=== PATIENT | female | born 1985 ===

== ENCOUNTER 2020-12-22 | Outpatient (REF) | payer BC, SELFPAY | END 2020-12-22 00:01 | disposition home or self-care (01) | LOC: HO.LNP | PROVIDERS: Visit Provider Nurse Practitioner Family | DX: J02.9 Acute pharyngitis, unspecified (principal); Z20.822 Contact with and (suspected) exposure to COVID-19 | CPT/HCPCS: U0003; U0005 ==

== ENCOUNTER 2021-05-07 10:15 | Outpatient (REF) | payer BC, SELFPAY ==
[2021-05-07 11:26] LABS: MANUAL DIFF FLAG NO
[2021-05-07 11:34] LABS: Basophils Absolute Auto 0.1 X10*3/uL (0.0-0.2); Basophils Percent Auto 0.7 % (0-2); Eosinophils Absolute Auto 0.1 X10*3/uL (0.0-0.4); Eosinophils Percent Auto 1.9 % (0-4); Hematocrit 39.6 % (37.0-47.0); Hemoglobin 12.9 g/dl (12.0-16.0); Imm Gran Abs Auto 0.02 X10*3/uL (0.00-0.03); Imm Gran Pct Auto 0.3 % (0.0-0.4); Lymphocytes Absolute Auto 2.2 X10*3/uL (1.2-4.9); Lymphocytes Percent Auto 32.5 % (20-40); Mean Corpuscular HGB Conc 32.6 g/dl (31.0-35.0); Mean Corpuscular Hemoglobin 29.9 pg (27.0-33.0); Mean Corpuscular Volume 91.7 fL (80.0-98.0); Mean Platelet Volume 10.5 fL (9.4-12.3); Monocytes Absolute Auto 0.5 X10*3/uL (0.1-1.2); Monocytes Percent Auto 7.4 % (2-11); Neutrophils Absolute Auto 3.9 x10*3/uL (2.0-8.3); Neutrophils Percent Auto 57.2 % (45-73); Platelet Count 290 X10*3/uL (160-400); Red Blood Count 4.32 X10*6/uL (4.20-5.50); White Blood Count 6.8 X10*3/uL (4.8-10.8)
[2021-05-07 12:07] LABS: Vitamin D 25-OH Total 25.1 ng/mL (>30)
[2021-05-07 12:39] LABS: Alanine Aminotransferase 15 U/L (0-31); Anion Gap 11 (12-20); Aspartate Amino Transferase 14 U/L (5-31); Blood Urea Nitrogen 10 mg/dL (9-16); Calcium 9.4 mg/dL (8.4-10.2); Carbon Dioxide 25 mmol/L (22-29); Chloride 109 mmol/L (96-108); Cholesterol 185 mg/dL; Estimated Glomerular Filt Rate > 60; Glucose Fasting 101 mg/dL (60-99); HDL Cholesterol 47 mg/dL; LDL Cholesterol Calculated 116 mg/dl; Potassium 4.1 mmol/L (3.3-5.1); Sodium 141 mmol/L (135-145); Triglycerides 111 mg/dL
== END 2021-05-07 10:16 | disposition home or self-care (01) ==
LOC: HO.HMGCLDS 10:15
PROVIDERS: PCP Internal Medicine; Visit Provider Internal Medicine
DX: Z00.01 Encounter for general adult medical examination with abnormal findings (principal); I10 Essential (primary) hypertension
CPT/HCPCS: 36415; 80048; 80061; 82306; 84450; 84460; 85025

== ENCOUNTER → 2021-09-30 13:34 | Outpatient (RCR) | payer BC, SELFPAY ==
--- NOTE | 2020-03-20 19:14 | MHC.PT.EP ---
[facility] [place] Office [place] Office [place] Office [address] Pedro Martinez [address] [phone] F: [phone] F: [phone] F: [phone] F: [phone] Physical Therapy Plan of Care Date of Evaluation: 03/20/20 Date of Surgery: Diagnosis: Hip pain. 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 Pt is deemed an appropriate candidate to receive skilled PT services to address her physical impairments in order to improve her functional ability. Frequency and Duration: The patient will be seen 2 x / wk 5 wks. Short Term Goals: In 2 weeks: initiate HEP with evidence of compliance. By 1 week: PT will have communicated with MD office re. diagnostic imaging to rule out FALGUNI or acetabular / femur head anomaly. Retirement Goals: In 5 weeks: I with HEP. In 5 weeks: improve R hip abd MMT to 5/5. In 5 weeks: Pt will be able to walk as long as she'd like with managed Sx. initial: quite a bit of difficulty x 2 blocks to 1 mile. Treatment Plan: Modalities to reduce pain, spasms and effusion. Manual therapy to restore motion and function. Therapeutic exercise to improve strength and flexibility. Neuromuscular re-education for posture and balance. Therapeutic activities to return to functional activities of daily living. Please sign and return to therapist. Thank you for your referral.
--- NOTE | 2020-04-28 11:18 | MHC.PT.DC ---
[facility] [place] Office [place] Office [place] Office [address] Pedro Martinez [address] [phone] F: [phone] F: [phone] F: [phone] F: [phone] Physical Therapy Discharge Report Diagnosis: Hip pain. Date of Surgery: Date of Evaluation: 03/20/20 Date of Discharge: Treatments to Date: 1 Cancellations to Date: 0 No Shows to Date: 0 Discharge Status: Patient Elected to Stop Visit Non-compliance Discharge Summary: Pt attended her initial evaluation and did not f/u with therapy despite reminder calls. Electronically signed by: Prince Luciano PT. Please sign and return to therapist. Thank you for your referral.
== END | disposition home or self-care (01) ==
LOC: HO.PTCHIC 03-20 16:53
PROVIDERS: PCP Internal Medicine; Visit Provider Nurse Practitioner Family
DX: M25.559 Pain in unspecified hip (principal)
CPT/HCPCS: 97110; 97140; 97161

== ENCOUNTER 2021-11-10 18:12 | Emergency (ER) | payer OTHER, SELFPAY ==
--- NOTE | ~2021-11-10 | XR_ITS ---
EXAMINATION: XR SHOULDER, LEFT CLINICAL INFORMATION: Pain COMPARISON: None TECHNIQUE: AP external rotation, Grashey, scapular Y, and axillary views of the left shoulder. FINDINGS: The bones and soft tissues are normal. No fracture. Glenohumeral and acromioclavicular alignment is anatomic with normal joint space. No abnormal soft tissue calcifications. XR/XR shoulder LT min 2V IMPRESSION: Normal left shoulder.
[2021-11-10 19:44] VITALS: BP 148/99; PULSE 98; RESP 17; TEMP 36.1; O2SAT 99; BMI 37.0
[2021-11-10 21:22] VITALS: BP 135/73; PULSE 80; RESP 16; O2SAT 98
--- NOTE | 2021-11-10 22:51 | ED.EXTPRO ---
HPI - Extremity Problem General Chief complaint: Extremity Injury, Upper Stated complaint: shoulder pain Time Seen by Provider: 11/10/21 20:56 Source: patient Mode of arrival: ambulatory History of Present Illness HPI Narrative: 35-year-old female with a past medical history of anxiety, depression, alcoholism in remission, presenting to the ED complaining of left shoulder/upper back pain since Tuesday. Reports slept on couch one night over weekend, otherwise denies any trauma/fall, heavy lifting for injury. Denies numbness, tingling, weakness, headache, neck pain Onset (ago): day(s) Pain Consistency: constant Related Data Previous Rx's Medication Instructions Recorded azithromycin 250 mg tablet See Rx Instructions PO .COMPLEX #6 09/15/21 tabs cimetidine 400 mg tablet 400 mg PO BEDTIME #5 tabs 09/15/21 diphenhydramine HCl 25 mg capsule 25 mg PO BID PRN sleep #14 caps 09/15/21 (Benadryl) prednisone 20 mg tablet 20 mg PO BID #9 tabs 09/15/21 acetaminophen 500 mg tablet 500 mg PO Q6H PRN fever or pain 11/10/21 (Tylenol Extra Strength) #14 tabs cyclobenzaprine 5 mg tablet 5 mg PO Q8H PRN pain (scale score 11/10/21 7-10) 5 days #14 tabs lidocaine 5 % topical patch 1 patch topical DAILY PRN pain #30 11/10/21 (Lidoderm) ea naproxen 500 mg tablet 500 mg PO BID PRN pain 10 days #20 11/10/21 tabs Allergies Allergy/AdvReac Type Severity Reaction Status Date / Time No Known Allergies Allergy Verified 09/15/21 16:41 Review of Systems Review of Systems: Constitutional: No Fever, No Chills ENT/Mouth: No Ear Pain, No Nasal Congestion, No Sinus Pain, No Hoarseness, No sore throat, No Rhinorrhea, No Swallowing Difficulty Cardiovascular: No Chest Pain, No SOB Respiratory: No Cough, No Sputum Gastrointestinal: No Nausea, No Vomiting, No Diarrhea, No Constipation, No Abdominal pain Genitourinary: No Dysuria, No Urinary Frequency, No Hematuria, No Urinary Incontinence/retention, No Urgency, No Flank Pain Musculoskeletal: + joint pain, No Myalgias, No Joint Swelling Skin: No Skin Lesions, No rash Neuro: No Weakness, No Numbness, No Paresthesias Yes all other systems are reviewed and are negative Neurologic: Denies Sensory deficit (Neuro) [facility] Past Medical History Attestation statement: The following information was validated with the patient. Medical History Chronic alcoholism in remission Obstruction of fallopian tube Surgical History H/O unilateral salpingectomy History of surgery Family History Family History Father Medical history non-contributory Mother Medical history non-contributory Maternal Uncle OCD (obsessive compulsive disorder) Mental health disorder Brother Medical history non-contributory Maternal Grandfather Substance use disorder Paternal Grandfather Substance use disorder Social History Social History Housing: House Patient Tobacco Use Status: Never used Tobacco e-Cigarette/Vaping Use: Never Used Advance Directives: No Advance Directives Information Provided: No service: No Current occupational status: employed Physical Exam Vital Signs: Vital Signs: Last Vital Signs Temp 96.9 F 11/10/21 19:44 Pulse 80 11/10/21 21:22 Resp 16 11/10/21 21:22 BP 135/73 11/10/21 21:22 Pulse Ox 98 11/10/21 21:22 O2 Del Method 11/10/21 19:44 BMI result Body Mass Index 37.0 Const: General: cooperative, healthy appearing and no acute distress Orientation/consciousness: patient oriented x3 Limitations: no limitations HEENT: Head: Yes normal to inspection and Yes atraumatic Ears: hearing grossly normal bilaterally General nose exam: Normal external nose present Face and sinus: Yes normal facial exam Eyes: General: appearance normal, both eyes and all related structures EOM: EOMs intact bilaterally Neck: Other: No midline cervical spinous tenderness/step-off or deformity. Left-sided trapezius muscle/upper back spasming and tenderness to palpation. No erythema/crepitus or ecchymosis Neck: Yes normal visual inspection, Yes full ROM, Yes no lymphadenopathy, Yes no meningeal signs and No anterior neck swelling Resp: Effort & Inspection: normal respiratory effort and no respiratory distress Cardio: Rate: regular rate Heart sounds: S1 normal heart sound present and S2 normal heart sound present Peripheral pulses: radial pulses present : General: Yes no CVA tenderness Back/Spine/Pelvis: Other: No midline thoracic/lumbar spinous tenderness/step-off or deformity Back: no CVA tenderness Skin: Rashes: no rashes Wounds: no wounds Neuro: General: patient oriented x3, gait normal, tone normal, moves all extremities, no meningeal signs, no focal motor deficits and CN's II-XI intact bilaterally Gait exam (Neuro): Normal gait present Motor exam (neuro): 5/5 motor strength present throughout Sensory Exam: No Sensory deficit (Neuro) Extrem: Other: Left shoulder nontender. Mild limited ROM secondary to pain. Neurovascular intact distally. General: Yes normal to inspection Course Course Course Narrative: XR shoulder LT min 2V IMPRESSION: Normal left shoulder. > results discussed with patient MDM - Extremity (Nontraumatic) MDM Narrative Medical decision making narrative: 35-year-old female with a past medical history of anxiety, depression, alcoholism in remission, presenting to the ED complaining of left shoulder/upper back pain since Tuesday. On exam vital signs stable, NAD/nontoxic-appearing, concern for MSK pain/spasming vs strain. Low concern for fracture/dislocation or septic joint Pain: X-rays, pain control Medical Records Attestation: I reviewed the patient's medical records. Lab Data Attestation: I reviewed the patient's lab results. Discharge Plan Discharge Clinical Impression: Strain of left trapezius muscle Patient Disposition: Home, Self-Care Instructions: Muscle Strain (ED) Additional Instructions: Your x-ray was unremarkable Your pain is likely musculoskeletal Flexeril is a muscle relaxer, take at night as it makes you drowsy, do not drive, drink alcohol, or operate machinery while taking it Naproxen as an anti-inflammatory / pain medication, take with food Lidoderm patches are numbing patches, apply to painful area In addition take Tylenol at home If symptoms persist or worsen, pain becomes unbearable, you developed urinary retention or incontinence, or weakness return to the ED Prescriptions: New acetaminophen [Tylenol Extra Strength] 500 mg tablet 500 mg PO Q6H PRN (Reason: fever or pain) Qty: 14 0RF lidocaine [Lidoderm] 5 % adhesive patch,medicated 1 patch topical DAILY MDD remove after 12 hours PRN (Reason: pain) Qty: 30 0RF Rx Instructions: leave on most painful area for up to 12 hrs naproxen 500 mg tablet 500 mg PO BID PRN (Reason: pain) 10 Days Qty: 20 0RF cyclobenzaprine 5 mg tablet 5 mg PO Q8H PRN (Reason: pain (scale score 7-10)) 5 Days Qty: 14 0RF No Action diphenhydramine HCl [Benadryl] 25 mg capsule 25 mg PO BID PRN (Reason: sleep) Qty: 14 0RF prednisone 20 mg tablet 20 mg PO BID Qty: 9 0RF Rx Instructions: tapered dose, take 1 tablet by mouth twice a day x 3 days, followed by 1 tablet once a day x 3 days, then discontinue cimetidine 400 mg tablet 400 mg PO BEDTIME Qty: 5 0RF azithromycin 250 mg tablet See Rx Instructions PO .COMPLEX Qty: 6 0RF Rx Instructions: For 250 mg dose pack: take 500 mg today (day 1), then 250 mg for 4 days (days 2-5) PO Referrals: Duong Barragan PA-C [Physician Irradiated Fuel Handler] - 1 week Physician,Unknown J [Primary Care Provider] - 5 days
[2021-11-10] MEDS: Ketorolac Tromethamine 30 MG/ML VIAL IM (22:59)
[2021-11-10] MEDS: Lidocaine 4 % Patch ADH..PATCH 1 PATCH TRANSDERMA (23:01)
== END 2021-11-10 23:09 | disposition home or self-care (01) ==
PROVIDERS: Emergency Provider Internal Medicine
DX: S46.912A Strain of unspecified muscle, fascia and tendon at shoulder and upper arm level, left arm, initial encounter (principal); X58.XXXA Exposure to other specified factors, initial encounter; Y93.9 Activity, unspecified; Y92.9 Unspecified place or not applicable; Y99.9 Unspecified external cause status; Z79.899 Other long term (current) drug therapy
CPT/HCPCS: 73030; 96372; 99284; J1885

== ENCOUNTER 2023-02-01 15:35 | Outpatient (AMB) | payer OTHER, SELFPAY ==
--- NOTE | 2023-02-01 16:09 | MHC.OFFWIV ---
Intake Vital Signs 02/01/23 16:14 Height 5 ft 4 in Weight 227 lb BMI 39.0 BP 112/80 Blood Pressure Location Rt brachial Position Sitting Pulse 86 Pulse Source Pulse Oximeter Pulse Oximetry (%) 98 Oxygen Delivery Method Room Air Intake Visit Reasons: EP, cough, UTI? ([phone]) Intake Note: Patient here for possible UTI which started today she states she has some burning when urinating. She also would like to talk about a cough that has been present for about 1 week, she mentioned she wakes up congested and has a hard time at night with coughing. Patient Tobacco Use Status: Never used Tobacco Allergies No Known Allergies Allergy (Verified 02/01/23 16:48) Medication List - Last Reconciled 02/01/23 by Viral Cameron MD acyclovir 400 mg (10 mL) PO .five times daily 5 days benzonatate 100 mg PO TID ondansetron 4 mg PO Q8H sulfamethoxazole-trimethoprim 800-160 mg (Bactrim DS) 1 tab PO BID 7 days Do you need a note to return to daycare/school/sports/work: No HPI EP, cough, UTI? ([phone]) HPI Details 37-year-old female presents to the office for a sick visit. She has 2 complaints. Reports symptoms of increased frequency of urination, burning on urination and discomfort in the suprapubic area. Symptoms started in the past few days. No fevers or chills. No nausea or vomiting. Reporting symptoms of sinus congestion, sore throat and difficulty swallowing. No recent travel. Patient reports symptoms of malaise and fatigue. [facility] Medical History Chronic alcoholism in remission Obstruction of fallopian tube Surgical History H/O unilateral salpingectomy History of surgery Family History Father Medical history non-contributory Mother Medical history non-contributory Maternal Uncle OCD (obsessive compulsive disorder) Mental health disorder Brother Medical history non-contributory Maternal Grandfather Substance use disorder Paternal Grandfather Substance use disorder Social History (Reviewed 11/10/21 @ 23:02 by RHIANNA Landa Housing: House Patient Tobacco Use Status: Never used Tobacco e-Cigarette/Vaping Use: Never Used service: No Current occupational status: employed Physical Exam Vital Signs: Last Vital Signs Pulse 86 02/01/23 16:14 BP 112/80 02/01/23 16:14 Pulse Ox 98 02/01/23 16:14 Oxygen Delivery Method Room Air 02/01/23 16:14 BMI result Body Mass Index 39.0 Const General: cooperative and healthy appearing Nutritional Appearance: well nourished Orientation/consciousness: patient oriented x3 Limitations: no limitations HEENT Head: Yes normal to inspection Eyes General: appearance normal, both eyes and all related structures Neck Neck: Yes normal visual inspection Chest Chest palpation & inspection: normal palpation of entire chest wall Resp Effort & Inspection: normal respiratory effort General: Yes bladder normal to inspection and Yes no CVA tenderness Back/Spine/Pelvis Back: no CVA tenderness Neuro General: patient oriented x3 Results AMB Urinalysis, Automated UA Leukoctes 15 Drew/uL Last Edit by Altaf Eubanks CCM on 02/01/23 16:27 UA Nitrite Negative Last Edit by Altaf Eubanks [facility] on 02/01/23 16:27 UA Urobilinogen 0.2 mg/dL Last Edit by Altaf Eubanks CCM on 02/01/23 16:27 UA Protein 0 mg/dL Last Edit by Altaf Eubanks [facility] on 02/01/23 16:27 UA pH 6.0 Last Edit by Altaf Eubanks [facility] on 02/01/23 16:27 UA Blood 0 Dallin/uL Last Edit by Altaf Eubanks [facility] on 02/01/23 16:27 UA Specific Holly 1.030 Last Edit by Altaf Eubanks CCM on 02/01/23 16:27 UA Ketone Negative Last Edit by Altaf Eubanks CCM on 02/01/23 16:27 UA Bilirubin 0 mg/dL Last Edit by Altaf Eubanks CCM on 02/01/23 16:27 UA Glucose 0 mg/dL Last Edit by Altaf Eubanks [facility] on 02/01/23 16:27 Results Reviewed Results Reviewed: Laboratory Last Values Urine pH (Auto) 6.0 02/01/23 16:25 Specific Holly (Auto) 1.030 02/01/23 16:25 Urine Protein (Auto) 0 mg/dL 02/01/23 16:25 Glucose (UA)(Auto) 0 mg/dL 02/01/23 16:25 Urine Ketones (Auto) Negative 02/01/23 16:25 Urine Blood (Auto) 0 Dallin/uL 02/01/23 16:25 Urine Nitrite (Auto) Negative 02/01/23 16:25 Urine Bilirubin (Auto) 0 mg/dL 02/01/23 16:25 Urine Urobilinogen (Auto) 0.2 mg/dL 02/01/23 16:25 Leukocyte Esterase (Auto) 15 Drew/uL 02/01/23 16:25 Assessment & Plan Assessment & Plan (1) Upper respiratory tract infection: Code(s): J06.9 - Acute upper respiratory infection, unspecified Qualifiers: URI type: unspecified viral URI Qualified Code(s): J06.9 - Acute upper respiratory infection, unspecified Plan: Antibiotics ordered. Increase fluid intake. Tylenol for aches and pains. If symptoms worsen, follow-up here for a recheck. (2) Urinary tract infection: Code(s): N39.0 - Urinary tract infection, site not specified Qualifiers: Urinary tract infection type: acute cystitis Hematuria presence: without hematuria Qualified Code(s): N30.00 - Acute cystitis without hematuria Plan: Take antibiotics and Pyridium as directed. Increase fluid intake. If symptoms of burning persist, new onset of fever or lower back pain, to follow-up at the clinic. Orders: Orders AMB Urinalysis Automated Today Z13.9 - Encounter for screening, unspecified Medications: New sulfamethoxazole-trimethoprim 800-160 mg (Bactrim DS) 1 tab PO BID 7 days 14 tabs 0RF benzonatate 100 mg PO TID 30 caps 0RF ondansetron 4 mg PO Q8H 30 tabs 0RF Coding Level of Care Code Est Pt Level 4 (69194) Diagnoses Viral upper respiratory tract infection J06.9 URI type: unspecified viral URI Acute cystitis without hematuria N30.00 Urinary tract infection type: acute cystitis Hematuria presence: without hematuria
[2023-02-01 16:14] VITALS: BP 112/80; PULSE 86; O2SAT 98; BMI 39.0
== END 2023-02-01 16:47 | disposition home or self-care (01) ==
PROVIDERS: PCP Internal Medicine; Visit Provider Internal Medicine
DX: J06.9 Acute upper respiratory infection, unspecified (principal); N30.00 Acute cystitis without hematuria
CPT/HCPCS: 81003; 99214

== ENCOUNTER 2023-06-02 14:43 | Outpatient (AMB) | payer OTHER, SELFPAY ==
[2023-06-02 14:54] VITALS: BP 118/86; PULSE 82; O2SAT 99; BMI 39.5
--- NOTE | 2023-06-02 14:54 | A.OFFPC_ITS ---
Vital Signs 06/02/23 14:54 Height 5 ft 4 in Weight 230 lb 2 oz BMI 39.5 BP 118/86 Blood Pressure Location Rt brachial Position Sitting Pulse 82 Pulse Source Pulse Oximeter Pulse Oximetry (%) 99 Oxygen Delivery Method Room Air Intake Visit Reasons: Leg and toe pain Intake Note: Pt is here right leg pain and left toe pain pt says the pain in her leg started over 10 years ago pt says the left big toe is painful but says she is unsure of injury Allergies No Known Allergies Allergy (Verified 06/06/23 12:28) Medication List - Last Reconciled 06/06/23 by Najma Nash MD acyclovir 400 mg (10 mL) PO .five times daily 5 days doxycycline hyclate 100 mg PO Q12H 10 days ondansetron 4 mg PO Q8H Tobacco use date assessed: 06/02/23 Dental Screening Dental Screen Date: 06/02/23 Did you have a dental visit in the last 12 months?: Yes Did you have a dental problem in the last 6 months where you did not have access to dental care?: No Was dental information given to patient?: Patient has dentist HPI Leg and toe pain HPI Details 37-year-old lady here today complaining right hip pain, worse with ambulation and going up and down stairs. This has been an ongoing issue, no history of any injury or any strenuous exertion. Patient states that pain initially comes and goes, but has been more steady the last several weeks. Has tried [id number] NSAIDs which have affords only temporary relief. She has also been having pain and swelling around her left great toe, present now for the last several days. [facility] Medical History (Updated 06/02/23 @ 15:17 by Najma Nash MD) Chronic right hip pain Obesity (BMI 30-39.9) Anxiety and depression Chronic alcoholism in remission Obstruction of fallopian tube Surgical History H/O unilateral salpingectomy History of surgery Family History Father Medical history non-contributory Mother Medical history non-contributory Maternal Uncle OCD (obsessive compulsive disorder) Mental health disorder Brother Medical history non-contributory Maternal Grandfather Substance use disorder Paternal Grandfather Substance use disorder Social History Housing: House Patient Tobacco Use Status: Never used Tobacco e-Cigarette/Vaping Use: Never Used service: No Current occupational status: employed Cognitive needs: No Hearing needs: No Vision needs: No Questionnaire Thrive Questionnaire Date Thrive assessed: 05/07/21 TOMMY-7 AMB Questionnaire TOMMY-7 Date TOMMY - 7 assessed: 05/07/21 Source: Developed by Drs. Edwar Sheets, Martha Lopez, Thang Ulloa and colleagues, with an educational senia from [employer]. Review of Systems Const All systems reviewed & are unremarkable except as noted in HPI and below Physical exam (Primary Care) Vital Signs: Last Vital Signs Pulse 82 06/02/23 14:54 BP 118/86 06/02/23 14:54 Pulse Ox 99 06/02/23 14:54 Oxygen Delivery Method Room Air 06/02/23 14:54 BMI result Body Mass Index 39.5 Tobacco/Smoking Status: Tobacco use Status Tobacco use date assessed 06/02/23 06/02/23 15:01 Patient Tobacco Use Status Never used Tobacco 06/02/23 15:01 e-Cigarette/Vaping Use Never Used 06/02/23 15:01 Thrive Assessment: Date of Thrive Assessment Date Thrive assessed 05/07/21 06/02/23 15:01 Const General: comfortable, no acute distress, alert and Physically active Nutritional Appearance: obese Orientation/consciousness: patient oriented x3 Neck Neck: Yes full ROM, Yes no lymphadenopathy and Yes supple Resp Auscultation: clear to auscultation bilaterally Cardio Rate: regular rate Rhythm: regular rhythm Heart sounds: S1 normal heart sound present and S2 normal heart sound present GI Palpation (GI): Soft to palpation, nontender, no guarding and no masses General: Yes no CVA tenderness Back/Spine/Pelvis Back: no CVA tenderness and No back tenderness Skin Other: Mild swelling and tenderness on palpation around toenail left big toe, no active drainage, toenail is loose General skin exam: no rashes or lesions noted Nails: other Neuro General: patient oriented x3 Extrem Other: Pain on flexion extension of right hip, no gross bony deformity seen Assessment and Plan Assessment & Plan (1) Chronic right hip pain: Code(s): M25.551 - Pain in right hip; G89.29 - Other chronic pain Plan: Will order an x-ray of right hip joint and refer for physical therapy. Call if no improvement or worsening of pain with physical therapy (2) Pain around toenail, left foot: Code(s): M79.675 - Pain in left toe(s) Plan: Podiatry consult ordered, empirically placed on doxycycline 100 mg per capsule to take 1 every 12 hours for 10 days. Orders: Orders XR hip RT w PEL1V 06/02/23 G89.29 - Other chronic pain, M25.551 - Pain in right hip PT Evaluation and Treatment 06/02/23 G89.29 - Other chronic pain, M25.551 - Pain in right hip Referrals Podiatry Referral M79.675 - Pain in left toe(s) Medications: New doxycycline hyclate 100 mg PO Q12H 10 days 20 caps 0RF Coding Level of Care Code Est Pt Level 3 (82539) Diagnoses Chronic right hip pain M25.551; G89.29 Pain around toenail, left foot M79.675
== END 2023-06-02 15:43 | disposition home or self-care (01) ==
PROVIDERS: PCP Internal Medicine; Visit Provider Internal Medicine
DX: M25.551 Pain in right hip (principal); G89.29 Other chronic pain; M79.675 Pain in left toe(s)
CPT/HCPCS: 99213

== ENCOUNTER 2023-06-02 15:22 | Outpatient (REF) | payer OTHER, SELFPAY ==
--- NOTE | ~2023-06-02 | XR_ITS ---
EXAMINATION: XR HIP, RIGHT CLINICAL INFORMATION: Right hip pain. COMPARISON: 10/03/2014 TECHNIQUE: Single view pelvis and two views of the right hip. FINDINGS: No fracture. Alignment is anatomic. Hip joint space is maintained. Soft tissues are unremarkable. XR/XR hip RT w PEL1V IMPRESSION: Normal right hip.
== END 2023-06-02 15:23 | disposition home or self-care (01) ==
LOC: HO.HMGCX 15:22
PROVIDERS: PCP Internal Medicine; Visit Provider Internal Medicine
DX: M25.551 Pain in right hip (principal); G89.29 Other chronic pain
CPT/HCPCS: 73502

== ENCOUNTER 2023-08-25 15:00 | Outpatient (RCR) | payer OTHER, SELFPAY ==
--- NOTE | 2023-06-06 14:14 | MHC.PT.EP ---
[facility] [place] Office [place] Office [place] Office [address] Pedro Martinez [address] [phone] F: [phone] F: [phone] F: [phone] F: [phone] Physical Therapy Plan of Care Date of Evaluation: 06/06/23 Date of Surgery: Diagnosis: R hip pain Other chronic pain Assessment: 37 y/o female referred to PT with chronic R hip pain. S/s consistent with iliopsoas dysfunction (? FALGUNI) resulting in pain and difficulty with getting in/out of car, prolonged sitting, prolonged standing, walking, transitional movements, yoly, PRAKASH position, use of rowing machines, driving, and water aerobics secondary to poor motor patterns (tends to fire TFL prior to gluteals creating anterior translation of femur into labrum), decreased R hip ER ROM with pain, decreased gluteal strenght, TTP lateral hip, and impaired gait pattern. Recommend PT 2x/week for 4 weeks to address impairments, implement HEP, and optimize functional mobility. Educated pt on motor control and time spent on breathing mechanics and TAC activation. Frequency and Duration: The patient will be seen 2x/week for 4 weeks Short Term Goals: 2 weeks Compliant with HEP Pt will be able to engage TrA without breath holding or bulging 5/5x Senior Living Goals: 4 weeks I with HEP and self management of sx Improve LEFS to 67/80 (IR 58/80) Pt will report decrease in pain by 50% (IR 5-10/10) Treatment Plan: Modalities to reduce pain, spasms and effusion. Manual therapy to restore motion and function. Therapeutic exercise to improve strength and flexibility. Neuromuscular re-education for posture and balance. Therapeutic activities to return to functional activities of daily living. Electronically signed by: Nereyda Kaiser PT Please sign and return to therapist. Thank you for your referral.
--- NOTE | 2023-09-23 10:30 | MHC.PT.DC ---
[facility] [place] Office [place] Office [place] Office [address] [phone] F: [phone] F: [phone] F: [phone] F: [phone] Physical Therapy Discharge Report Diagnosis: R hip pain Other chronic pain Date of Surgery: Date of Evaluation: 06/06/23 Date of Discharge: 09/23/23 Treatments to Date: 11 Cancellations to Date: 0 No Shows to Date: Discharge Status: Independent with HEP Discharge Summary: Pt reports I with HEP and gradually doing more activities. R glut continues to have weakness, otherwise noted improvements. MRI scheduled for 09/07. Pt states she will contact if further PT indicated. At this time, have not heard back from pt and at this time will close chart Electronically signed by: Nereyda Kaiser PT Please sign and return to therapist. Thank you for your referral.
== END 2023-09-23 10:31 | disposition home or self-care (01) ==
LOC: HO.PTCHIC 15:00
PROVIDERS: PCP Internal Medicine; Visit Provider Internal Medicine
DX: M25.551 Pain in right hip (principal); G89.29 Other chronic pain
CPT/HCPCS: 97110; 97112; 97140; 97161

== ENCOUNTER 2023-09-08 20:04 | Outpatient (REF) | payer OTHER, SELFPAY ==
--- NOTE | ~2023-09-08 | MR_ITS ---
EXAMINATION: MR HIP WITHOUT CONTRAST, RIGHT CLINICAL INFORMATION: Right hip pain. COMPARISON: X-ray 06/02/2023. TECHNIQUE: MRI of the right hip was obtained using routine sequences on a high-field strength magnet. FINDINGS: BONE/JOINTS: Mild right hip joint space narrowing, chondral heterogeneity and fissuring, prominent acetabular subchondral cysts, consistent with mnmz-or-fumrmabb osteoarthritis. No evidence of fracture, avascular necrosis or stress reaction. Symphysis pubis is intact. The visualized inferior SI joint appears unremarkable. LABRUM: Increased T2 signal in the anterosuperior labrum, extending to the articular surfaces, with irregularity/ill-definition, consistent with degenerative tearing. Subjacent 1.4 cm paralabral cyst. Small cystic focus anteroinferiorly, could reflect a synovial recess or a paralabral cyst as well. MUSCLES/TENDONS: Mild gluteus minimus tendinosis. Remainder of the tendons appear intact. No muscle tear. JOINT FLUID/BURSA: Small hip joint fluid. No significant greater trochanteric or iliopsoas bursitis. ADDITIONAL FINDINGS: No groin lymphadenopathy. No free fluid in the pelvis. No acute findings seen in the partially visualized pelvis. MR/MR hip RT wo con IMPRESSION: 1. Iveg-gl-afvgwogh right hip arthritis. No evidence of acute fracture, avascular necrosis or stress reaction. 2. Anterosuperior labral degenerative tearing. 1.4 cm paralabral cyst. 3. Mild gluteus minimus tendinosis. 4. Additional notes as above.
== END 2023-09-08 20:05 | disposition home or self-care (01) ==
LOC: HO.MRI 20:04
PROVIDERS: PCP Internal Medicine; Visit Provider Internal Medicine
DX: M25.551 Pain in right hip (principal); G89.29 Other chronic pain
CPT/HCPCS: 73721

== ENCOUNTER 2023-10-18 15:37 | Outpatient (AMB) | payer OTHER, SELFPAY ==
[2023-10-18 15:40] VITALS: BP 124/78; PULSE 102; O2SAT 96; BMI 39.5
--- NOTE | 2023-10-18 15:40 | MHC.PC.OV ---
Vital Signs 10/18/23 15:40 Height 5 ft 4 in Weight 230 lb BMI 39.5 BP 124/78 Blood Pressure Location Rt brachial Position Sitting Pulse 102 H Pulse Source Pulse Oximeter Pulse Oximetry (%) 96 Oxygen Delivery Method Room Air Intake Visit Reasons: Annual PE Intake Note: Pt is here today for her PE: Last papsmear 09/18/18 Allergies No Known Allergies Allergy (Verified 10/18/23 15:46) Medication List - Last Reconciled 10/18/23 by Najma Nash MD acyclovir 400 mg (10 mL) PO .five times daily 5 days albuterol sulfate 90 mcg/actuation (Ventolin HFA) inhalation ondansetron 4 mg PO Q8H Tobacco use date assessed: 10/18/23 Dental Screening Dental Screen Date: 10/18/23 Did you have a dental visit in the last 12 months?: Yes Did you have a dental problem in the last 6 months where you did not have access to dental care?: No Was dental information given to patient?: Patient has dentist HPI Annual PE HPI Details 37 Year old lady here today for physical exam. She is currently followed at [facility] for her routine Pap and pelvic exam, she is anxiety depression, currently sees her therapist once a week, does not want to start any medication at present time. Complaining of persistent dry cough which has been present now for the last several months. Patient states that excessive laughing, talking, or running will trigger excessive coughing and wheezing. No family history of bronchial asthma. [facility] and [facility] a rescue inhaler which she states has been helping temporarily. She complains of difficulty initiating and maintaining sleep, frequently wakes up during the middle of the night 2 or 3 times at night, wakes up feeling not rested. Has been snores a lot and would sometimes have coughing spells that occur up in the middle of the night. Complains of recurrent cold sores mainly in her left lower lip. Has been taking acyclovir for frequent outbreaks. She was found to have a labral tear on her right hip on MRI with moderate arthritis in hip joint. Has an appointment already scheduled to be seen by an [facility]opedics next week for further evaluation and management [facility] Medical History (Updated 10/18/23 @ 17:06 by Najma Nash MD) Anxiety and depression Recurrent cold sores Labral tear of right hip joint Excessive daytime sleepiness Loud snoring Frequent nocturnal awakening Difficulty sleeping Cough, persistent Osteoarthritis of right hip Chronic right hip pain Obesity (BMI 30-39.9) Chronic alcoholism in remission Obstruction of fallopian tube Surgical History H/O unilateral salpingectomy History of surgery Family History Father Medical history non-contributory Mother Medical history non-contributory Maternal Uncle OCD (obsessive compulsive disorder) Mental health disorder Brother Medical history non-contributory Maternal Grandfather Substance use disorder Paternal Grandfather Substance use disorder Social History Housing: House Patient Tobacco Use Status: Never used Tobacco e-Cigarette/Vaping Use: Never Used service: No Current occupational status: employed Cognitive needs: No Hearing needs: No Vision needs: Yes Questionnaire PHQ-9 Over the last 2 weeks, how often have you been bothered by any of the following problems? 1. Little interest or pleasure in doing things: not at all 2. Feeling down, depressed, or hopeless: not at all 3. Trouble falling or staying asleep, or sleeping too much: nearly every day 4. Feeling tired or having little energy: more than half the days 5. Poor appetite or overeating: more than half the days 6. Feeling bad about yourself - or that you are a failure or have let yourself or your family down: not at all 7. Trouble concentrating on things, such as reading the newspaper or watching television: several days 8. Moving or speaking so slowly that other people could have noticed. Or the opposite - being so fidgety or restless that you have been moving around a lot more than usual: several days 9. Thoughts that you would be better off or of hurting yourself in some way: not at all Total score: 9 Depression Screening Interpretation: Positive (sees a therapist weekly) Depression Screening Follow-up: Existing condition and In treatment Depression Screening Done: Yes Source: Developed by Drs. Edwar Sheets, Martha Lopez, Thang Ulloa and colleagues, with an educational seina from [employer]. Thrive Questionnaire Date Thrive assessed: 10/18/23 I am a: Patient What is your living situation today?: I have a steady place to live Within the past 12 months, did the food you bought not last and you didn't have the money to get more?: Sometimes True Within the past 12 months, did you worry whether your food would run out before you got money to buy more?: Sometimes True Do you have trouble paying for medicines?: No Do you have trouble getting transportation to medical appointments?: No Do you have trouble paying your heating and electricity bill?: No Do you have trouble taking care of your child, family member or friend?: No Do you have trouble with day-to-day activities such as bathing, preparing meals, shopping, managing finances, etc.?: No Are you currently unemployed and looking for a job?: No Are you interested in more education?: Yes THRIVE Score: 2 AUDIT C Alcohol Use Questionnaire (AUDIT-C) 1. How often do you have a drink containing alcohol?: Never Total Score: 0 TOMMY-7 AMB Questionnaire TOMMY-7 Date TOMMY - 7 assessed: 10/18/23 Feeling nervous, anxious, or on edge: 2 = More than half the days Not being able to stop or control worryin = Several days Worrying too much about different things: 1 = Several days Trouble relaxin = More than half the days Being so restless that it is hard to sit still: 1 = Several days Becoming easily annoyed or irritable: 2 = More than half the days Feeling afraid as if something awful might happen: 1 = Several days Total TOMMY-7 score (0-4 normal; 5-9 mild; 10-14 moderate; 15-21 severe): 10 Source: Developed by Drs. Edwar Sheets, Martha Lopez, Thang Ulloa and colleagues, with an educational senia from [employer]. TOMMY-7 Assessment Billing TOMMY-7 Assessment Tool: TOMMY-7 Assessment 74912 (sees therapist weekly) [place] Sleepiness Scale Questions Sitting and reading: would never doze Watching TV: high chance of dozing Sitting inactive in a theater, movie etc.: moderate chance of dozing As a passenger in a car for an hour without break: moderate chance of dozing Lying down in the afternoon when circumstances permit: high chance of dozing Sitting and talking to someone: would never doze Sitting quietly after lunch without alcohol: would never doze In a car, while stopped for a few minutes in the traffic: would never doze ESS < 10: normal, ESS > 12: pathologic: 10 Review of Systems Const Denies fatigue, Denies fever(s), Denies headache(s) and Denies weakness Eyes Details: [facility] Denies change in vision, Denies eye discharge and Denies itchy eyes ENT Reports Normal hearing present, Denies dizziness, Denies headache(s), Denies nasal congestion, Denies nasal discharge and Denies sore throat Card Denies chest pain, Denies lightheadedness, Denies palpitations and Denies dyspnea Resp Denies chest congestion and Denies dyspnea GI Denies abdominal pain, Denies change in bowel habits and Denies heartburn Denies urinary frequency, Denies dysuria and Denies urinary urgency Musc Reports no additional complaints Skin/Breast Denies lesions and Denies rash Neuro Reports Normal hearing present, Denies dizziness, Denies headache(s), Denies Sensory deficit (Neuro) and Denies weakness Psych Reports as per HPI Endo Denies fatigue, Denies polydipsia, Denies polyuria and Denies palpitations Ross/Lymph Denies easy bruising Aller/Immun Denies itchy eyes and Denies seasonal rhinorrhea Physical exam (Primary Care) Vital Signs: Last Vital Signs Pulse 102 H 10/18/23 15:40 BP 124/78 10/18/23 15:40 Pulse Ox 96 10/18/23 15:40 Oxygen Delivery Method Room Air 10/18/23 15:40 BMI result Body Mass Index 39.5 Tobacco/Smoking Status: Tobacco use Status Tobacco use date assessed 10/18/23 10/18/23 15:45 Patient Tobacco Use Status Never used Tobacco 10/18/23 15:45 e-Cigarette/Vaping Use Never Used 10/18/23 15:45 PHQ-9: PHQ-9 Score PHQ-9: Total score 9 10/18/23 16:16 Depression Screening Interpretation: Positive (sees a therapist weekly) Depression Screening Follow-up: Existing condition and In treatment Thrive Assessment: Date of Thrive Assessment Date Thrive assessed 05/28/24 05/28/24 16:08 Const General: comfortable, no acute distress, alert and Physically active Nutritional Appearance: obese Orientation/consciousness: patient oriented x3 HENMT Head: Yes normocephalic Ears: external ears normal, TM's normal bilaterally and EAC's normal General nose exam: Normal external nose present, No nasal discharge present and Abnormal external nose present Eyes General: appearance normal, both eyes and all related structures Neck Neck: Yes full ROM, Yes no lymphadenopathy and Yes supple Chest Chest palpation & inspection: normal inspection of the chest Breast/axilla palpation: normal palpation of the breasts Resp Auscultation: clear to auscultation bilaterally Cardio Rate: regular rate Rhythm: regular rhythm Heart sounds: S1 normal heart sound present and S2 normal heart sound present GI Palpation (GI): Soft to palpation, nontender, no guarding and no masses General: Yes no CVA tenderness Back/Spine/Pelvis Back: no CVA tenderness and No back tenderness Skin Other: Multiple tattoos covering chest, back , arms General skin exam: no rashes or lesions noted Nails: other Neuro General: patient oriented x3 Cranial nerves: Yes Normal hearing present Sensory Exam: No Sensory deficit (Neuro) Extrem Other: Pain on flexion extension of right hip, no gross bony deformity seen Psych Appearance: grossly normal and well kempt Mental Status: mental status grossly normal Speech and movement: Normal speech and movement present Affect: normal affect Assessment and Plan Assessment & Plan (1) Annual visit for general adult medical examination with abnormal findings: Code(s): Z00.01 - Encounter for general adult medical examination with abnormal findings Plan: Will check appropriate labs. Continue regular dental visit every 6 months and regular eye exams, at least every 2 years. Take adequate calcium in diet and vitamin-D 3 at 2000 IU per cap once a day, in addition to weight-bearing exercises to help maintain good muscle tone and weight control. Instructed to do self-breast exam, and recommended to get yearly mammogram, starting at age 40. Goes to [facility] for routine Pap and pelvic exam, last done in 2020 patient does not want to get any vaccinations (2) History of vitamin D deficiency: Code(s): Z86.39 - Personal history of other endocrine, nutritional and metabolic disease Plan: Ordered vitamin-D level (3) Cough, persistent: Code(s): R05.3 - Chronic cough Plan: Ordered pulmonary function testing and pulmonary function testing with methacholine challenge to check for asthma. In the meantime continue using albuterol inhaler as needed for episodes of bronchospasm and wheezing (4) Difficulty sleeping: Code(s): G47.9 - Sleep disorder, unspecified Plan: Referred to [facility] sleep clinic for further evaluation for possible obstructive sleep apnea (5) Frequent nocturnal awakening: Code(s): G47.00 - Insomnia, unspecified Plan: Referred to [facility] sleep clinic for further evaluation for possible obstructive sleep apnea (6) Loud snoring: Code(s): R06.83 - Snoring Plan: Referred to [facility] sleep clinic for further evaluation for possible obstructive sleep apnea (7) Excessive daytime sleepiness: Code(s): G47.19 - Other hypersomnia Plan: Referred to [facility] sleep clinic for further evaluation for possible obstructive sleep apnea (8) Labral tear of right hip joint: Code(s): S73.191A - Other sprain of right hip, initial encounter Plan: She has an upcoming appointment with [facility] orthopedics for further evaluation manage (9) Recurrent cold sores: Code(s): B00.1 - Herpesviral vesicular dermatitis Plan: Discontinue acyclovir, prescription sent for valacyclovir 2 g/tab every 12 hours for 1 day, at the 1st sign recurrence of cold sore (10) Anxiety and depression: Code(s): F41.9 - Anxiety disorder, unspecified; F32.A - Depression, unspecified Plan: Currently sees therapist weekly, declines starting any medication at present time Orders: Orders Lipid Panel Today Z00.01 - Encounter for general adult medical examination with abnormal findings, Z13.1 - Encounter for screening for diabetes mellitus, Z13.220 - Encounter for screening for lipoid disorders, Z86.39 - Personal history of other endocrine, nutritional and metabolic disease Vitamin D 25-OH Total Today Z00.01 - Encounter for general adult medical examination with abnormal findings, Z13.1 - Encounter for screening for diabetes mellitus, Z13.220 - Encounter for screening for lipoid disorders, Z86.39 - Personal history of other endocrine, nutritional and metabolic disease PFT pulmonary function test Today R05.3 - Chronic cough Glucose Fasting Today Z00.01 - Encounter for general adult medical examination with abnormal findings, Z13.1 - Encounter for screening for diabetes mellitus, Z13.220 - Encounter for screening for lipoid disorders, Z86.39 - Personal history of other endocrine, nutritional and metabolic disease RT pft w methacholine Today R05.3 - Chronic cough Referrals Sleep Medicine Referral G47.00 - Insomnia, unspecified, G47.19 - Other hypersomnia, G47.9 - Sleep disorder, unspecified, R06.83 - Snoring Medications: New valacyclovir Take it the 1st sign of a cold sore, 2,000 mg (2 x 1 gram) PO Q12H PRN 4 tabs 5RF Recurrent cold sore Coding Level of Care Code Est Pt Prev Care 18-39y(40156) Diagnoses Annual visit for general adult medical examination with abnormal findings Z00.01 History of vitamin D deficiency Z86.39 Cough, persistent R05.3 Difficulty sleeping G47.9 Frequent nocturnal awakening G47.00 Loud snoring R06.83 Excessive daytime sleepiness G47.19 Labral tear of right hip joint S73.191A Recurrent cold sores B00.1 Anxiety and depression F41.9; F32.A Additional Codes TOMMY-7 Assessment Billing - TOMMY-7 Assessment Tool: TOMMY-7 Assessment 24016 ([id number])
== END 2023-10-18 16:27 | disposition home or self-care (01) ==
LOC: HO.HMGC 15:38
PROVIDERS: PCP Internal Medicine; Visit Provider Internal Medicine
DX: Z00.00 Encounter for general adult medical examination without abnormal findings (principal); R05.3 Chronic cough; G47.9 Sleep disorder, unspecified; Z86.39 Personal history of other endocrine, nutritional and metabolic disease; G47.00 Insomnia, unspecified; R06.83 Snoring; G47.19 Other hypersomnia; S73.191A Other sprain of right hip, initial encounter; B00.1 Herpesviral vesicular dermatitis; F41.9 Anxiety disorder, unspecified; F32.A Depression, unspecified
CPT/HCPCS: 99395

== ENCOUNTER 2023-10-20 15:04 | Outpatient (AMB) | payer OTHER, SELFPAY ==
--- NOTE | 2023-10-20 15:16 | MHC.OFFVIS ---
Vital Signs 10/20/23 15:17 Height 5 ft 4 in Weight 230 lb BMI 39.5 BP 122/70 Blood Pressure Location Rt brachial Position Sitting Respiration 16 Pulse 64 Pulse Source Pulse Oximeter Pulse Oximetry (%) 98 Oxygen Delivery Method Room Air Intake Visit Reasons: INP-Sleep disorder Intake Note: Pt present to the office for new pt evaluation for sleep disturbance. 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 Main complaints- Sleep questionnaire- Difficulty falling asleep-yes Difficulty staying asleep-yes Number of arousals-2 Snoring-yes Witnessed apneas-no Gasping arousals-yes Nocturia-yes GERD-no Vivid dreams-yes Acting out dreams -no Abnormal behavior in sleep-no ABnormal movements in sleep-yes Morning headaches-yes Excessive daytime sleepiness-yes Daytime naps- no restless legs- yes Hallucinations- no sleep paralysis- no Drop attacks- no she reports abnormal sensations and abnormal leg jerks at rest - moving makes it better Sleep study-no Sleep Hygiene- Sleep time-midnight Wake time coffee/stimulant use- none- she has h/o substance abuse alcoholism opiod use, cocaine use - SOBER for 12 years [facility] Medical History (Updated 10/20/23 @ 15:39 by Saray Narayanan MD) At risk for abuse of opiates Marijuana abuse Cocaine abuse Substance use disorder Alcoholism Restless legs syndrome (RLS) Anxiety and depression Recurrent cold sores Labral tear of right hip joint Excessive daytime sleepiness Loud snoring Frequent nocturnal awakening Difficulty sleeping Cough, persistent Osteoarthritis of right hip Chronic right hip pain Obesity (BMI 30-39.9) Chronic alcoholism in remission Obstruction of fallopian tube Surgical History H/O unilateral salpingectomy History of surgery Family History Father Medical history non-contributory Mother Medical history non-contributory Maternal Uncle OCD (obsessive compulsive disorder) Mental health disorder Brother Medical history non-contributory Maternal Grandfather Substance use disorder Paternal Grandfather Substance use disorder Social History Housing: House Patient Tobacco Use Status: Never used Tobacco e-Cigarette/Vaping Use: Never Used service: No Current occupational status: employed Cognitive needs: No Hearing needs: No Vision needs: Yes Physical Exam Vital Signs: Last Vital Signs Pulse 64 10/20/23 15:17 Resp 16 10/20/23 15:17 BP 122/70 10/20/23 15:17 Pulse Ox 98 10/20/23 15:17 Oxygen Delivery Method Room Air 10/20/23 15:17 BMI result Body Mass Index 39.5 Const General: cooperative, healthy appearing, comfortable and no acute distress Nutritional Appearance: obese Orientation/consciousness: patient oriented x3 Eyes Pupils: Equal, round and reactive pupils present Neuro General: patient oriented x3, gait normal, tone normal, moves all extremities and no focal motor deficits Cranial nerves: Yes Equal, round and reactive pupils present, Yes Bilaterally intact EOM present, Yes Nystagmus not present, Yes Normal facial strength present, Yes Midline tongue present, Yes Symmetric palate elevation present and Yes Ability to bilaterally elevate shoulders present Cognition (Neuro): normal cognition Gait exam (Neuro): Normal gait present Motor exam (neuro): 5/5 motor strength present throughout and Normal motor muscle tone present throughout Deep tendon reflexes (DTR's): Right triceps reflex intensity grade: 1+, Left triceps reflex intensity grade: 1+, Rt Biceps (C5, C6): 1+, Left biceps reflex intensity grade: 1+, Right brachioradialis reflex intensity grade: 1+, Left brachioradialis reflex intensity grade: 1+, Right patellar reflex intensity grade: 1+ and Left patellar reflex intensity grade: 1+ Coordination: [id number] test normal Assessment & Plan Assessment & Plan (1) Loud snoring: Code(s): R06.83 - Snoring Category: Medical (2) Excessive daytime sleepiness: Code(s): G47.19 - Other hypersomnia Category: Medical (3) Restless legs syndrome (RLS): Code(s): G25.81 - Restless legs syndrome Category: Medical Plan Home sleep test to r/o sleep apnea Check TSH Vit B 12 CBC CMP will trial her ropinirole 0.25 mg 1-4 tabs daily Orders: Orders Vitamin B12 and Folate Today G47.9 - Sleep disorder, unspecified Comprehensive Met. Panel Today G47.9 - Sleep disorder, unspecified TSH reflex Free T4 Today G47.9 - Sleep disorder, unspecified Complete Blood Count Auto Diff Today G47.9 - Sleep disorder, unspecified RT home sleep study Today G25.81 - Restless legs syndrome, G47.19 - Other hypersomnia, R06.83 - Snoring Medications: New ropinirole 1-4 tabs orally bedtime; administer 1-3 hours before bedtime 120 tabs 6RF Coding Level of Care Code New Pt Level 4 (94656) Diagnoses Loud snoring R06.83 Excessive daytime sleepiness G47.19 Restless legs syndrome (RLS) G25.81 [place] Sleepiness Scale Questions Sitting and reading: moderate chance of dozing Watching TV: high chance of dozing Sitting inactive in a theater, movie etc.: high chance of dozing As a passenger in a car for an hour without break: moderate chance of dozing Lying down in the afternoon when circumstances permit: high chance of dozing Sitting and talking to someone: slight chance of dozing Sitting quietly after lunch without alcohol: would never doze In a car, while stopped for a few minutes in the traffic: would never doze ESS < 10: normal, ESS > 12: pathologic: 14
[2023-10-20 15:17] VITALS: BP 122/70; PULSE 64; RESP 16; O2SAT 98; BMI 39.5
== END 2023-10-20 15:45 | disposition home or self-care (01) ==
PROVIDERS: PCP Internal Medicine; Visit Provider Psychiatry & Neurology Neurology
DX: R06.83 Snoring (principal); G47.19 Other hypersomnia; G25.81 Restless legs syndrome
CPT/HCPCS: 99204

== ENCOUNTER → 2023-10-20 15:04 | Outpatient (BNVA) | payer OTHER, SELFPAY | PROVIDERS: PCP Internal Medicine; Visit Provider Psychiatry & Neurology Neurology | DX: G47.19 Other hypersomnia (principal); G25.81 Restless legs syndrome; R06.83 Snoring | CPT/HCPCS: 99202 ==

== ENCOUNTER 2023-10-27 14:19 | Outpatient (AMB) | payer OTHER, SELFPAY ==
--- NOTE | 2023-10-27 14:23 | MHC.OFFVIS ---
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 Pateint report that she has had right lateral hip and groinpain ongoing for about 10 years now. She has previously done physical therapy this year, hx of anti-inflammatories. No previous injuries. Her pain is intermittent but is present more than not, is triggered by lateral movemnents of the hips, sitting for long periods of time, and sometimes just walking can trigger it. At times it feels that the hip is dislocating. She has numbness and tingling that radiates to the leg and foot. MR/MR hip RT wo con IMPRESSION: 1. Gpth-jp-betqedph right hip arthritis. No evidence of acute fracture, avascular necrosis or stress reaction. 2. Anterosuperior labral degenerative tearing. 1.4 cm paralabral cyst. 3. Mild gluteus minimus tendinosis. 4. Additional notes as above. 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 She has pain getting into and out of a car and standing from a seated position. She also has pain with several ADLs. She is frustrated by her pain and feels that it it not improving even with PT. Her pain is deep anterior groin. [facility], [facility] Medical History (Updated 10/20/23 @ 15:39 by Saray Narayanan MD) At risk for abuse of opiates Marijuana abuse Cocaine abuse Substance use disorder Alcoholism Restless legs syndrome (RLS) Anxiety and depression Recurrent cold sores Labral tear of right hip joint Excessive daytime sleepiness Loud snoring Frequent nocturnal awakening Difficulty sleeping Cough, persistent Osteoarthritis of right hip Chronic right hip pain Obesity (BMI 30-39.9) Chronic alcoholism in remission Obstruction of fallopian tube Surgical History H/O unilateral salpingectomy History of surgery Family History Father Medical history non-contributory Mother Medical history non-contributory Maternal Uncle OCD (obsessive compulsive disorder) Mental health disorder Brother Medical history non-contributory Maternal Grandfather Substance use disorder Paternal Grandfather Substance use disorder Social History (Updated 10/27/23 @ 14:29 by Coco Velasquez CMA) Housing: House Patient Tobacco Use Status: Never used Tobacco e-Cigarette/Vaping Use: Never Used service: No Current occupational status: employed 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 1. Ukly-md-tjldrzmg right hip arthritis. No evidence of acute fracture, avascular necrosis or stress reaction. 2. Anterosuperior labral degenerative tearing. 1.4 cm paralabral cyst. 3. Mild gluteus minimus tendinosis. 4. Additional notes as above. Assessment & Plan Assessment & Plan (1) Labral tear of right hip joint: Code(s): S73.191A - Other sprain of right hip, initial encounter Category: Medical Plan: MRI evidence of degenerative labral tear that would be better visualized with MR arthrogram. Given her concomitant OA I recommend MR arthrogram to see if she would be a candidate for hip arthroscoy. Orders: Orders MR hip RT w con Today S73.191A - Other sprain of right hip, initial encounter Medications: New meloxicam 15 mg PO DAILY 30 tabs 3RF Coding Level of Care Code New Pt Level 4 (83763) Diagnoses Labral tear of right hip joint S73.191A
[2023-10-27 14:29] VITALS: BMI 39.5
== END 2023-10-27 15:43 | disposition home or self-care (01) ==
PROVIDERS: PCP Internal Medicine; Visit Provider Orthopaedic Surgery
DX: S73.191A Other sprain of right hip, initial encounter (principal); M16.11 Unilateral primary osteoarthritis, right hip
CPT/HCPCS: 99204

== ENCOUNTER → 2023-10-27 14:19 | Outpatient (BNVA) | payer OTHER, SELFPAY | PROVIDERS: PCP Internal Medicine; Visit Provider Orthopaedic Surgery | DX: S73.191A Other sprain of right hip, initial encounter (principal) | CPT/HCPCS: 99202 ==

== ENCOUNTER 2023-11-09 11:27 | Outpatient (REF) | payer OTHER, SELFPAY ==
[2023-11-09 18:15] LABS: MANUAL DIFF FLAG NO
[2023-11-09 18:17] LABS: Basophils Absolute Auto 0.1 X10*3/uL (0.0-0.2); Basophils Percent Auto 0.8 % (0-2); Eosinophils Absolute Auto 0.1 X10*3/uL (0.0-0.4); Eosinophils Percent Auto 1.7 % (0-4); Hematocrit 38.4 % (37.0-47.0); Hemoglobin 13.2 g/dl (12.0-16.0); Imm Gran Abs Auto 0.01 X10*3/uL (0.00-0.03); Imm Gran Pct Auto 0.2 % (0.0-0.4); Lymphocytes Absolute Auto 1.9 X10*3/uL (1.2-4.9); Lymphocytes Percent Auto 32.3 % (20-40); Mean Corpuscular HGB Conc 34.4 g/dl (31.0-35.0); Mean Corpuscular Hemoglobin 30.8 pg (27.0-33.0); Mean Corpuscular Volume 89.5 fL (80.0-98.0); Mean Platelet Volume 10.7 fL (9.4-12.3); Monocytes Absolute Auto 0.4 X10*3/uL (0.1-1.2); Neutrophils Absolute Auto 3.5 x10*3/uL (2.0-8.3); Platelet Count 292 X10*3/uL (160-400); Red Blood Count 4.29 X10*6/uL (4.20-5.50); Red Cell Distribution Width 12.2 % (11.0-16.0)
[2023-11-09 18:34] LABS: Alanine Aminotransferase 21 U/L (0-31); Albumin Level 4.1 g/dL (3.5-5.0); Alkaline Phosphatase 76 U/L (39-117); Anion Gap 10 (12-20); Aspartate Amino Transferase 19 U/L (5-31); Blood Urea Nitrogen 12 mg/dL (9-16); Calcium 9.2 mg/dL (8.4-10.2); Carbon Dioxide 29 mmol/L (22-29); Chloride 107 mmol/L (96-108); Cholesterol 174 mg/dL (<200); Estimated Glomerular Filt Rate > 60; Glucose Fasting 96 mg/dL (60-99); Glucose Random 96 mg/dL (60-115); HDL Cholesterol 43 mg/dL (>40); LDL Cholesterol Calculated 100 mg/dL (<100); Potassium 4.5 mmol/L (3.3-5.1); Sodium 141 mmol/L (135-145); Total Protein 6.9 g/dL (6.5-8.0); Triglycerides 156 mg/dL (<150)
[2023-11-09 18:46] LABS: TSH reflex Free T4 1.03 uIU/mL (0.32-4.0)
[2023-11-09 18:49] LABS: Vitamin D 25-OH Total 25.6 ng/mL (>30)
[2023-11-09 19:00] LABS: Folate 8.8 ng/mL (> or = 4.0); Vitamin B12 309 pg/mL (200-900)
== END 2023-11-09 11:28 | disposition home or self-care (01) ==
LOC: HO.HKASLDS 11:27
PROVIDERS: Internal Medicine; Visit Provider Psychiatry & Neurology Neurology
DX: Z00.01 Encounter for general adult medical examination with abnormal findings (principal); Z13.220 Encounter for screening for lipoid disorders; Z13.1 Encounter for screening for diabetes mellitus; Z86.39 Personal history of other endocrine, nutritional and metabolic disease; G47.9 Sleep disorder, unspecified
CPT/HCPCS: 36415; 80053; 80061; 82306; 82607; 82746; 82947; 84443; 85025

== ENCOUNTER → 2023-11-29 15:36 | Outpatient (REF) | payer OTHER, SELFPAY | LOC: HO.SL 15:36 | PROVIDERS: PCP Internal Medicine; Visit Provider Psychiatry & Neurology Neurology | DX: G47.19 Other hypersomnia (principal); G25.81 Restless legs syndrome; R06.83 Snoring | CPT/HCPCS: 95806 ==

== ENCOUNTER → 2023-11-29 15:44 | Outpatient (BNV) | payer OTHER, SELFPAY | PROVIDERS: PCP Internal Medicine; Visit Provider Internal Medicine | DX: R06.83 Snoring (principal) | CPT/HCPCS: 95806 ==

== ENCOUNTER 2023-12-01 10:43 | Outpatient (AMB) | payer OTHER, SELFPAY ==
[2023-12-01 10:54] VITALS: BP 102/80; PULSE 70; O2SAT 97; BMI 39.8
--- NOTE | 2023-12-01 10:54 | A.OFFPC_ITS ---
Vital Signs 12/01/23 10:54 Height 5 ft 4 in Weight 232 lb BMI 39.8 BP 102/80 Blood Pressure Location Rt brachial Position Sitting Pulse 70 Pulse Source Pulse Oximeter Pulse Oximetry (%) 97 Oxygen Delivery Method Room Air Intake Visit Reasons: rash left leg Intake Note: Pt is here today c/o Lt side of groin rash and itchy Allergies No Known Allergies Allergy (Verified 12/01/23 11:25) Medication List - Last Reconciled 12/01/23 by Najma Nash MD acyclovir 400 mg (10 mL) PO .five times daily 5 days albuterol sulfate 90 mcg/actuation (Ventolin HFA) inhalation meloxicam 15 mg PO DAILY ondansetron 4 mg PO Q8H ropinirole 1-4 tabs orally bedtime; administer 1-3 hours before bedtime valacyclovir 2,000 mg (2 x 1 gram) PO Q12H PRN Tobacco use date assessed: 12/01/23 Dental Screening Dental Screen Date: 12/01/23 Did you have a dental visit in the last 12 months?: Yes Did you have a dental problem in the last 6 months where you did not have access to dental care?: No Was dental information given to patient?: Patient has dentist HPI rash left leg HPI Details 37-year-old lady here today complaining of pruritic patch on left upper thigh, which started with the insect bite approximately 5 days ago. States that the rash is enlarging and is now spreading to her lower abdomen and left perineal area. Denies any accompanying shortness of breath, no palpitations no fever no chills or abdominal pain or change in bowel habits reported. Patient not see what bit her. She has been applying yhau-ocq-jrvvpmw remedies for insect bites which affords only temporary relief. [facility] Medical History At risk for abuse of opiates Marijuana abuse Cocaine abuse Substance use disorder Alcoholism Restless legs syndrome (RLS) Anxiety and depression Recurrent cold sores Labral tear of right hip joint Excessive daytime sleepiness Loud snoring Frequent nocturnal awakening Difficulty sleeping Cough, persistent Osteoarthritis of right hip Chronic right hip pain Obesity (BMI 30-39.9) Chronic alcoholism in remission Obstruction of fallopian tube Surgical History H/O unilateral salpingectomy History of surgery Family History Father Medical history non-contributory Mother Medical history non-contributory Maternal Uncle OCD (obsessive compulsive disorder) Mental health disorder Brother Medical history non-contributory Maternal Grandfather Substance use disorder Paternal Grandfather Substance use disorder Social History Housing: House Patient Tobacco Use Status: Never used Tobacco e-Cigarette/Vaping Use: Never Used service: No Current occupational status: employed 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 Edwar Sheets, Martha Lopez, Thang Ulloa and colleagues, with an educational senia from [employer]. Review of Systems Const All systems reviewed & are unremarkable except as noted in HPI and below Physical exam (Primary Care) Vital Signs: Last Vital Signs Pulse 70 12/01/23 10:54 BP 102/80 12/01/23 10:54 Pulse Ox 97 12/01/23 10:54 Oxygen Delivery Method Room Air 12/01/23 10:54 BMI result Body Mass Index 39.8 Tobacco/Smoking Status: Tobacco use Status Tobacco use date assessed 12/01/23 12/01/23 10:58 Patient Tobacco Use Status Never used Tobacco 12/01/23 10:58 e-Cigarette/Vaping Use Never Used 12/01/23 10:58 Thrive Assessment: Date of Thrive Assessment Date Thrive assessed 10/18/23 12/01/23 10:58 Const Other: Alert oriented x3, no acute distress noted ambulatory Orientation/consciousness: patient oriented x3 HENMT Face and sinus: Yes face symmetric Mouth: Normal oral and palatal mucosa present, oropharynx normal and moist mucous membranes Eyes General: appearance normal, both eyes and all related structures Neck Neck: Yes full ROM, Yes no lymphadenopathy and Yes supple Resp Effort & Inspection: normal respiratory effort and able to speak in complete sentences Auscultation: clear to auscultation bilaterally Cardio Rate: regular rate Rhythm: regular rhythm Heart sounds: S1 normal heart sound present and S2 normal heart sound present GI Inspection: Yes obesity Palpation (GI): Soft to palpation, nontender, no guarding and no masses Auscultation: normal bowel sounds Skin Other: Slightly raised erythematous patch on anterior aspect of left thigh, with a similar patch noted on left lower abdomen Neuro General: patient oriented x3, gait normal, tone normal, moves all extremities, Normal light touch and pain sensation, no focal motor deficits and CN's II-XI intact bilaterally Assessment and Plan Assessment & Plan (1) Allergic dermatitis: Code(s): L23.9 - Allergic contact dermatitis, unspecified cause Plan: Allergic reaction to insect bite on left upper thigh, prescription sent for triamcinolone cream 0.1% to apply sparingly to affected area twice a day for no more than 10 days at a time. May take Benadryl 25 mg at bed time as needed for itching. Medications: New triamcinolone acetonide 0.1% 1 appl topical BID 30 grams 0RF 10 days Coding Level of Care Code Est Pt Level 3 (45965) Diagnoses Allergic dermatitis L23.9
== END 2023-12-01 11:43 | disposition home or self-care (01) ==
PROVIDERS: PCP Internal Medicine; Visit Provider Internal Medicine
DX: L23.9 Allergic contact dermatitis, unspecified cause (principal)
CPT/HCPCS: 99213

== ENCOUNTER 2023-12-08 15:12 | Outpatient (AMB) | payer OTHER, SELFPAY ==
--- NOTE | 2023-12-08 15:13 | AM.OFFWIN_ITS ---
Intake Vital Signs 12/08/23 15:14 Height 5 ft 4 in Weight 232 lb BMI 39.8 BP 108/70 Blood Pressure Location Rt brachial Position Sitting Pulse 92 Pulse Source Pulse Oximeter Temp 98.1 F Temp Source Oral Pulse Oximetry (%) 97 Oxygen Delivery Method Room Air Intake Visit Reasons: EP LT heel pain Intake Note: pt c/o LT heel pain. Started 12/02/23 Patient Tobacco Use Status: Never used Tobacco Allergies No Known Allergies Allergy (Verified 12/08/23 15:14) Do you need a note to return to daycare/school/sports/work: No HPI HPI Comments History of Present Illness Details Patient is a 37-year-old female with a few complaints about her left foot. She states her big toenail on her left foot had it infection, she was given antibiotics which she took but it does not seem to have resolved. She was given a referral to a superintendent plant protection but they called her and said she missed her appointment but she states she was not even aware she had an appointment. She is also stating that for the last 6 days she has had burning and pain across the base of her toes on her left foot and pain in her heel. She states this pain is worse when she walks and is better when she rests. She states she can move all of her toes, foot and her ankle as normal. [facility] Medical History At risk for abuse of opiates Marijuana abuse Cocaine abuse Substance use disorder Alcoholism Restless legs syndrome (RLS) Anxiety and depression Recurrent cold sores Labral tear of right hip joint Excessive daytime sleepiness Loud snoring Frequent nocturnal awakening Difficulty sleeping Cough, persistent Osteoarthritis of right hip Chronic right hip pain Obesity (BMI 30-39.9) Chronic alcoholism in remission Obstruction of fallopian tube Surgical History H/O unilateral salpingectomy History of surgery Family History Father Medical history non-contributory Mother Medical history non-contributory Maternal Uncle OCD (obsessive compulsive disorder) Mental health disorder Brother Medical history non-contributory Maternal Grandfather Substance use disorder Paternal Grandfather Substance use disorder Social History Housing: House Patient Tobacco Use Status: Never used Tobacco e-Cigarette/Vaping Use: Never Used service: No Current occupational status: employed 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 - [employer] Cognitive needs: No Hearing needs: No Vision needs: Yes Review of Systems Const All systems reviewed & are unremarkable except as noted in HPI and below Physical Exam Vital Signs: Last Vital Signs Temp 98.1 F 12/08/23 15:14 Pulse 92 12/08/23 15:14 BP 108/70 12/08/23 15:14 Pulse Ox 97 12/08/23 15:14 Oxygen Delivery Method Room Air 12/08/23 15:14 BMI result Body Mass Index 39.8 Const General: cooperative, healthy appearing, comfortable, no acute distress and well developed Orientation/consciousness: patient oriented x3 Limitations: no limitations HEENT Head: Yes normal to inspection Eyes General: appearance normal, both eyes and all related structures Neck Neck: Yes normal visual inspection and Yes full ROM Resp Effort & Inspection: normal respiratory effort and able to speak in complete sentences Skin General skin exam: no rashes or lesions noted Neuro General: patient oriented x3 Extrem General: Yes normal to inspection Left lower extremity: foot Details: normal capillary refill, normal to inspection, tenderness Location: of the plantar foot, of the calcaneus and of the mid foot and toes with normal ROM; no unusual warmth, edema noted, no abrasions, no lacerations and no ecchymosis Assessment & Plan Assessment & Plan (1) Plantar fasciitis of left foot: Code(s): M72.2 - Plantar fascial fibromatosis Plan: Recommended shoes with good support, resting the foot, rolling it a long a fro hina water bottle as well as using a leave and follow up with superintendent plant protection if no improvement in symptoms, patient already has a referral in place. Recommended she call the superintendent plant protection to make the appointment as a referral has been sent by her PCP back in May. (2) Onychomycosis: Code(s): B35.1 - Tinea unguium Plan: Recommended she follow up with her PCP for treatment or her superintendent plant protection for treatment Plan See above Coding Level of Care Code Est Pt Level 4 (51303) Diagnoses Plantar fasciitis of left foot M72.2 Onychomycosis B35.1
[2023-12-08 15:14] VITALS: BP 108/70; PULSE 92; TEMP 36.7; O2SAT 97; BMI 39.8
== END 2023-12-08 15:56 | disposition home or self-care (01) ==
PROVIDERS: PCP Internal Medicine; Visit Provider Physician Assistant
DX: M72.2 Plantar fascial fibromatosis (principal); B35.1 Tinea unguium
CPT/HCPCS: 99214

== ENCOUNTER 2024-01-10 16:00 | Outpatient (RCR) | payer OTHER, SELFPAY ==
--- NOTE | 2023-12-09 06:50 | MHC.PT.EP ---
[facility] [place] Office [place] Office [place] [facility] [address] Pedro Martinez [address] [phone] F: [phone] F: [phone] F: [phone] F: [phone] Physical Therapy Plan of Care Date of Evaluation: 12/08/23 Date of Surgery: Diagnosis: This is a 37 yo female presenting to skilled PT with a script for labral tear of R hip joint. Assessment: This is a 37 yo female presenting to skilled PT with a script for labral tear of R hip joint. Patient was here at PT and DC'd a few months ago due to plateau in progress with hip pain. She was ordered an MRI with results noted as 1. Mwif-su-zllnbrah right hip arthritis. No evidence of acute fracture, avascular necrosis or stress reaction. 2. Anterosuperior labral degenerative tearing. 1.4 cm paralabral cyst. 3. Mild gluteus minimus tendinosis. 4. Additional notes as above. She states that she has now returned as she has a definitive diagnosis and hopes to be treated for this. Since MA she is reporting that she has not been doing her exercises as she does not have a lot of motivation to do them. She is now being followed by [facility] ortho now and plan states: MRI evidence of degenerative labral tear that would be better visualized with MR arthrogram. Given her concomitant OA I recommend MR arthrogram to see if she would be a candidate for hip arthroscopy. Patient reporting that her pain varies. Some days she has increased pain that causes her to limp and pain that can be very sharp in nature/brings her to tears. Other days she states I feel like a million bucks. Pain is located R groin, R lateral hip and will sometimes radiates down anterior thigh and into anterior foot. Of note she is also having heel pain on the L now which she believes is from a toe infection however this is causing an abnormal gait as well. Old eval subjective from 06/06/23: Reports R hip pain for over 10 years of insidious onset that has been off/on that has been gradually worsening. Sometimes it feels locked or that it will fall off and be stiff; other days she has no pain. States when she has pain, it is very sharp pain 'like stubbing your toe' pain and it limits her ability to exercise. It feels like hip is out of place. She has trialed PT in the past but only came 1x and stopped because it increased pain. She reports being tired of the pain. Unsure how long painful periods can be or painfree periods can last. Denies changes in bowel/ bladder, denies falling on tailbone. Reports difficulty with sitting, standing, driving, supine lying with hip ER, yoly, water aerobics, rowing machine. She came to 11 visits of PT and was DC less than 3 months ago. She was plateauing in progress with PT and had been referred for an MRI and to ortho. Assessment reveals pain that ranges from up to a 3-10/10 at the worst. Patient demos decreased R hip and ankle ROM, strength of gluts, core and back, TTP at ITB, and impaired posture with forward head and rounded shoulders as well as impaired varying gait pattern due to pain. Based on functional limitations, impaired QOL and pain tolerance patient is a fair candidate for skilled PT 2x/wk for 4wks as she was DC'd 2 months ago, has had little to no carryover with HEP and continues to have the same symptoms as prior eval. Frequency and Duration: The patient will be seen 2x/wk for 4wks Short Term Goals: (in 2 weeks) Patient will demo good understanding and performance of quad set and glut set in multiple different planes without cues from PT Patient will understand the goals of PT, anatomy and achievable goals Custodial Goals: (in 4 weeks) Patient will improve LEFs by 10 points Patient will demo WFL AROM of knee and ankle Patient will demo proper squat and lift techniques without increase in pain Patient will understand the importance and be compliant with an HEP Treatment Plan: Modalities to reduce pain, spasms and effusion. Manual therapy to restore motion and function. Therapeutic exercise to improve strength and flexibility. Neuromuscular re-education for posture and balance. Therapeutic activities to return to functional activities of daily living. Electronically signed by: Claudia Ma PT Please sign and return to therapist. Thank you for your referral.
--- NOTE | 2024-01-17 12:59 | MHC.PT.DC ---
[facility] [place] Office [place] Office [place] Office [address] Pedro Martinez [address] [phone] F: [phone] F: [phone] F: [phone] F: [phone] Physical Therapy Discharge Report Diagnosis: This is a 37 yo female presenting to skilled PT with a script for labral tear of R hip joint. Date of Surgery: Date of Evaluation: 12/08/23 Date of Discharge: 01/17/24 Treatments to Date: 8 Cancellations to Date: 0 No Shows to Date: 0 Discharge Status: Recommend MD Follow-up Discharge Summary: Patient with no relief from PT. She called and cancelled her last scheduled appointment. She is undergoing an MRI with contrast and being referred to an orthopedic. She has an HEP that she can continue on her own if she so chooses. Her insurance is also changing on 01/19. Due to limited changes in pain and function, patient to be DC'd back to MD. Electronically signed by: Claudia Ma PT Please sign and return to therapist. Thank you for your referral.
== END 2024-01-17 12:59 | disposition home or self-care (01) ==
LOC: HO.PTCHIC 16:00
PROVIDERS: PCP Internal Medicine; Visit Provider Orthopaedic Surgery
DX: S73.191D Other sprain of right hip, subsequent encounter (principal)
CPT/HCPCS: 97110; 97140; 97161; 97535

== ENCOUNTER 2024-01-20 13:19 | Outpatient (REF) | payer OTHER, SELFPAY ==
--- NOTE | ~2024-01-20 | FL_ITS ---
FLUOROSCOPIC RIGHT HIP ARTHROGRAM INDICATIONS: Right hip pain. Intra-articular gadolinium injection is needed prior to MRI. TECHNIQUE: Procedure: Risks and benefits and possible complications were discussed with the patient and the consent form was signed. The patient was placed hip on the fluoroscopy table. The right hip was prepped and draped in normal sterile fashion. 1% buffered lidocaine was used for anesthesia. A 22-gauge spinal needle was used to access the hip joint. Intra-articular position of the needle within the hip joint was verified using 3 cc of Omnipaque 300. A total of 10 mL of gadolinium/saline (1:200) contrast mixture was then injected into the hip joint. The needle was then removed and a Band-Aid was applied to the injection site. The patient tolerated the procedure well and was sent for to MRI. There were no immediate complications. FL/FL arthrogram hip RT IMPRESSION: Fluoroscopic right hip arthrogram. The patient will undergo MRI. The procedure was performed by Alfredo Mckinney PA-C, and directly supervised by Dr. Vernon. Electronically signed by: Garrison Vernon MD 01/20/2024 03:04 PM EDT
--- NOTE | ~2024-01-20 | MR_ITS ---
EXAMINATION: MR HIP WITH CONTRAST, RIGHT CLINICAL INFORMATION: Sprain of right hip, patient reports right hip pain. COMPARISON: Pre-MRI arthrogram of the right hip. MRI of the right hip August 2023, x-ray of the right hip September 2014. TECHNIQUE: MRI of the right hip was performed after the intra-articular administration of a dilute gadolinium-containing solution on a high-field scanner. FINDINGS: Bones/cartilage: There is persistent scattered cartilage heterogeneity and subchondral cysts along the anterosuperior and middle superior portion of the acetabulum indicative of tuhu-ns-efbygppy osteoarthritis, unchanged. No bony excrescence or cystic change at the femoral head/neck junction. Labrum\capsule: The anterosuperior portion of the labrum is not well visualized. There is a clustered paralabral cyst adjacent to this portion of the meniscus. Findings most compatible with a nondisplaced tear of the anterosuperior labrum with paralabral cyst. The cyst measures up to 23 mm transverse, 7 mm AP and 22 mm craniocaudal. The cyst extends medially deep to the iliopsoas tendon. Remaining portions of the labrum intact. Ligamentum teres: Normal. Muscles/tendons: Mild heterogeneous increased signal surrounding the distal gluteus minimus tendon compatible with minimal partial tearing but no measurable defect or tendon retraction. Remaining muscles and tendons normal. Trochanteric bursa: Minimal increased T2 signal compatible with minimal bursitis. Neurovascular structures: Normal. Subcutaneous soft tissues normal. Additional findings: Limited evaluation of the entire pelvis is also included in the cudnz-ow-uydm of the exam. No additional abnormalities noted. MR/MR hip RT w con IMPRESSION: 1. Rdrz-wy-yrkhdusn osteoarthritis of the right hip, unchanged. 2. Nondisplaced tear of the anterosuperior labrum with paralabral cyst, unchanged. 3. Minimal partial tearing of the gluteus minimus tendon, unchanged. 4. Minimal trochanteric bursitis. Electronically signed by: Jim Little MD 01/25/2024 12:12 PM EDT
== END 2024-01-20 13:20 | disposition home or self-care (01) ==
LOC: HO.XRAY 13:19
PROVIDERS: PCP Internal Medicine; Visit Provider Orthopaedic Surgery
DX: S73.191A Other sprain of right hip, initial encounter (principal)
CPT/HCPCS: 27093; 73525; 73722

== ENCOUNTER → 2024-01-20 13:20 | Outpatient (BNV) | payer OTHER, SELFPAY | PROVIDERS: PCP Internal Medicine; Visit Provider Radiology Diagnostic Radiology | DX: M25.551 Pain in right hip (principal) | CPT/HCPCS: 27093; 73525 ==

== ENCOUNTER 2024-03-16 09:37 | Outpatient (AMB) | payer OTHER, SELFPAY ==
--- NOTE | 2024-03-16 09:38 | A.OFFVIS_ITS ---
Vital Signs 03/16/24 09:41 Height 5 ft 4 in Weight 232 lb BMI 39.8 Intake Visit Reasons: OV- Right hip MRI review Intake Note: Kami is a 38 year old female who presents today for an MRI review of her right hip. MRI arthrogram done 01/20/24. MR/MR hip RT w con IMPRESSION: 1. Gspu-ca-ypmudoej osteoarthritis of the right hip, unchanged. 2. Nondisplaced tear of the anterosuperior labrum with paralabral cyst, unchanged. 3. Minimal partial tearing of the gluteus minimus tendon, unchanged. 4. Minimal trochanteric bursitis. Allergies No Known Allergies Allergy (Verified 03/16/24 09:42) HPI HPI OV- Right hip MRI review: Details: Kami is a 38 year old female who presents today for an MRI review of her right hip. MRI arthrogram done 01/20/24. Kami continues to have persistent right groin pain. She feels the quality of her life is severely diminished. She can exercise she is always in pain and is very frustrated. [facility] Medical History At risk for abuse of opiates Marijuana abuse Cocaine abuse Substance use disorder Alcoholism Restless legs syndrome (RLS) Anxiety and depression Recurrent cold sores Labral tear of right hip joint Excessive daytime sleepiness Loud snoring Frequent nocturnal awakening Difficulty sleeping Cough, persistent Osteoarthritis of right hip Chronic right hip pain Obesity (BMI 30-39.9) Chronic alcoholism in remission Obstruction of fallopian tube Surgical History H/O unilateral salpingectomy History of surgery Family History Father Medical history non-contributory Mother Medical history non-contributory Maternal Uncle OCD (obsessive compulsive disorder) Mental health disorder Brother Medical history non-contributory Maternal Grandfather Substance use disorder Paternal Grandfather Substance use disorder Social History Housing: House Patient Tobacco Use Status: Never used Tobacco e-Cigarette/Vaping Use: Never Used service: No Current occupational status: employed 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 IMPRESSION: 1. Euhd-jo-rrlhqkrg osteoarthritis of the right hip, unchanged. 2. Nondisplaced tear of the anterosuperior labrum with paralabral cyst, unchanged. 3. Minimal partial tearing of the gluteus minimus tendon, unchanged. 4. Minimal trochanteric bursitis. Assessment & Plan Assessment & Plan (1) Arthritis of right hip: Code(s): M16.11 - Unilateral primary osteoarthritis, right hip Category: Medical Plan: This is a 38-year-old woman with right hip bdcz-yt-ycefsjol arthritis. Her arthritis is located in the weight-bearing portion of the acetabulum according to the MRI. This is consistent with her exam. I think this is likely the pain generator versus a small nondisplaced labral tear also seen on MRI. At this po int I think the options are an injection of PRP in her hip versus referral to a hip arthroscopist. I will refer her to Dr. Meyer in pain management for consideration of a possible intra-articular PRP injection. Coding Level of Care Code Est Pt Level 4 (27536) Diagnoses Arthritis of right hip M16.11
[2024-03-16 09:41] VITALS: BMI 39.8
== END 2024-03-16 10:14 | disposition home or self-care (01) ==
PROVIDERS: PCP Internal Medicine; Visit Provider Orthopaedic Surgery
DX: M16.11 Unilateral primary osteoarthritis, right hip (principal)
CPT/HCPCS: 99214

== ENCOUNTER → 2024-03-16 09:37 | Outpatient (BNVA) | payer OTHER, SELFPAY | PROVIDERS: PCP Internal Medicine; Visit Provider Orthopaedic Surgery ==

== ENCOUNTER 2024-07-02 09:29 | Outpatient (AMB) | payer OTHER, SELFPAY ==
--- NOTE | 2024-07-02 09:34 | MHC.OFFVIS ---
Vital Signs 07/02/24 09:35 Height 5 ft 4 in Weight 240 lb BMI 41.2 BP 146/69 H Blood Pressure Location Lt brachial Position Sitting Respiration 16 Pulse 98 Pulse Source Pulse Oximeter Pulse Oximetry (%) 96 Oxygen Delivery Method Room Air Intake Visit Reasons: Unilateral primary osteoarthritis, right hip Tank Builder Required: No Allergies No Known Allergies Allergy (Verified 07/02/24 09:36) Medication List - Last Reconciled 07/02/24 by Vanessa King LPN albuterol sulfate 90 mcg/actuation (Ventolin HFA) inhalation meloxicam 15 mg PO DAILY ondansetron 4 mg PO Q8H PRN ropinirole 1-4 tabs orally bedtime; administer 1-3 hours before bedtime triamcinolone acetonide 0.1% 1 appl topical BID 10 days valacyclovir 2,000 mg (2 x 1 gram) PO Q12H PRN HPI HPI Unilateral primary osteoarthritis, right hip: Details: History of Present Illness The patient is a 38-year-old female presenting with chronic right hip and leg pain, which commenced a decade ago, involving aching and burning sensations. The diagnosis of right hip osteoarthritis and a nondisplaced labral tear is established. This pain negatively impacts her daily life, causing difficulties with movement and discomfort during sleep. The intensity of the pain fluctuates, with worsened symptoms in the morning and evening, and improved conditions by late morning. Management strategies so far include limited use of meloxicam due to concerns about adverse effects on renal and gastrointestinal functions. Given her history, the patient is cautious about opioid medications. Pain Description - Onset: 10 years ago - Quality: Aching in groin, burning, and needle sensation in the leg - Primary Location: Axial lower back, right groin, radiating to leg - Intensity: 7/10 on a typical day - Exacerbating Factors: Movement, morning, and end of day - Relieving Factors: Late morning - Functional Interference: Difficulty functioning, discomfort in sleep Physical Exam Results - MRI: Showed right hip osteoarthritis in the weight-bearing portion of the acetabulum and a nondisplaced labral tear Pain Management - Affect: Reduced quality of life, equating to a much older individual's experience - Analgesia: Previously prescribed meloxicam, patient prefers alternatives due to side effects - Adverse Effects: Concerns over kidney and gastrointestinal side effects from meloxicam - Activities of Daily Living: Significant interference with normal functioning and sleep - Aberrant Drug Related Behaviors: Patient is in recovery, avoiding opioids [facility] Medical History At risk for abuse of opiates Marijuana abuse Cocaine abuse Substance use disorder Alcoholism Restless legs syndrome (RLS) Anxiety and depression Recurrent cold sores Labral tear of right hip joint Excessive daytime sleepiness Loud snoring Frequent nocturnal awakening Difficulty sleeping Cough, persistent Osteoarthritis of right hip Chronic right hip pain Obesity (BMI 30-39.9) Chronic alcoholism in remission Obstruction of fallopian tube Surgical History H/O unilateral salpingectomy History of surgery Family History Father Medical history non-contributory Mother Medical history non-contributory Maternal Uncle OCD (obsessive compulsive disorder) Mental health disorder Brother Medical history non-contributory Maternal Grandfather Substance use disorder Paternal Grandfather Substance use disorder Social History Housing: House Patient Tobacco Use Status: Never used Tobacco e-Cigarette/Vaping Use: Never Used service: No Current occupational status: employed 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 - [employer] Cognitive needs: No Hearing needs: No Vision needs: Yes Physical Exam Vital Signs: Last Vital Signs Pulse 98 07/02/24 09:35 Resp 16 07/02/24 09:35 BP 146/69 H 07/02/24 09:35 Pulse Ox 96 07/02/24 09:35 Oxygen Delivery Method Room Air 07/02/24 09:35 BMI result Body Mass Index 41.2 Assessment & Plan Assessment & Plan (1) Arthritis of right hip: Code(s): M16.11 - Unilateral primary osteoarthritis, right hip Category: Medical Plan Plan The patient's current primary diagnosis of right hip osteoarthritis and chronic pain is being managed with suggested PRP injections as a non-surgical intervention to potentially alleviate symptoms, despite insurance non-coverage. Cortisone injections remain an alternative covered by insurance. Celebrex is prescribed to manage symptoms with less risk to renal and gastrointestinal health compared to meloxicam. The effectiveness of these treatments will be evaluated following initial PRP therapy, with possible further interventions depending on therapeutic outcomes. Counseled to hold NSAIDs 2 weeks before/after PRP injection. Patient was informed and verbally consented to the use of an ambient scribe for clinic note documentation during this visit. Discussion Notes I explained to the patient that her chronic right hip pain, likely exacerbated by osteoarthritis and a labral tear, may benefit from an intra-articular platelet-rich plasma (PRP) injection. We discussed that while insurance does not cover PRP, it may improve symptoms and possibly lead to long-term benefits with repeated treatments. Cortisone injections, covered by insurance, offer temporal relief but no long-term structural improvements. I addressed potential PRP and cortisone side effects, noting the latter's risk of bone degeneration and weight-related side effects. We reviewed surgical intervention risks and limitations given her age. For medication, Celebrex was recommended for pain management, with prescription completed. Future follow-up and treatment adjustments will occur based on patient responses to the therapies administered. All questions regarding management options and procedural risks were addressed, and the patient expressed her intent to explore PRP treatment for pain relief. Patient Instructions - Schedule a PRP injection when ready; understand it may require Valium or Ativan for the procedure. - Start Celebrex as prescribed; monitor for side effects and overall impact on pain levels. - Avoid NSAIDs for two weeks before PRP injections. - Assess financial feasibility for PRP injections. - Count ?good? and ?bad? days to evaluate treatment effectiveness. - Contact for any adverse reactions, severe pain, or if considering surgery sooner. Medications: New celecoxib (Celebrex) 200 mg PO BID 60 caps 3RF Discontinued meloxicam Discontinued Reason: Patient Refused 15 mg PO DAILY 30 tabs 3RF Coding Level of Care Code New Pt Level 4 (94844) Diagnoses Arthritis of right hip M16.11
[2024-07-02 09:35] VITALS: BP 146/69; PULSE 98; RESP 16; O2SAT 96; BMI 41.2
== END 2024-07-02 10:04 | disposition home or self-care (01) ==
PROVIDERS: PCP Internal Medicine; Referring Provider Orthopaedic Surgery; Visit Provider Internal Medicine
DX: M16.11 Unilateral primary osteoarthritis, right hip (principal)
CPT/HCPCS: 99204

== ENCOUNTER 2024-07-10 09:18 | Outpatient (AMB) | payer OTHER, SELFPAY ==
--- NOTE | 2024-07-10 09:48 | A.OFFPC_ITS ---
Vital Signs 07/10/24 09:49 Height 5 ft 4 in Weight 240 lb BMI 41.2 BP 132/82 Blood Pressure Location Rt brachial Position Sitting Respiration 15 Pulse 81 Pulse Source Pulse Oximeter Temp 97.9 F Temp Source Oral Pulse Oximetry (%) 98 Oxygen Delivery Method Room Air Intake Visit Reasons: Mental health concerns Intake Note: Pt is here today c/o mental health concerns Allergies No Known Allergies Allergy (Verified 07/10/24 10:08) Medication List - Last Reconciled 07/10/24 by Najma Nash MD albuterol sulfate 90 mcg/actuation (Ventolin HFA) inhalation celecoxib (Celebrex) 200 mg PO BID ondansetron 4 mg PO Q8H PRN ropinirole 1-4 tabs orally bedtime; administer 1-3 hours before bedtime valacyclovir 2,000 mg (2 x 1 gram) PO Q12H PRN Tobacco use date assessed: 07/10/24 Dental Screening Dental Screen Date: 07/10/24 Did you have a dental visit in the last 12 months?: Yes Did you have a dental problem in the last 6 months where you did not have access to dental care?: No Was dental information given to patient?: Patient has dentist HPI Mental health concerns HPI Details - The patient is a 38-year-old female pr esenting with concerns regarding depression and anxiety - The patient?s major depressive disorde r has been characterized by increased frequency of low energy and motivational levels. These changes have occurred without clear triggers and are partly linked to her history of substance use, now in sustained remission for over 13 years. - Generalized Anxiety Disorder manifests with continuous nervousness, which was controlled to some degree during periods of substance use. Patient experiences exacerbations especially during claustrophobic situations. - Hip osteoarthritis is managed poorly w ith current medications. PRP was suggested as a potential therapy, but it is not financially supportedapproved by the patient?s insurance. - The patient is obese with an associate d condition of binge eating disorder. Attempts to manage weight have been challenging, further impacting her joint health. - The patient has claustrophobia, becomi ng apparent during MRI studies, impacting her ability to seek certain diagnostic procedures comfortably. - She reports curiosity in pursuing ADHD evaluation given her noticing symptoms commonly associated with the disorder. - she has toenail deformity in left grea t toe, requesting podiatry referral [facility] Medical History (Updated 07/10/24 @ 10:21 by Najma Nash MD) Acquired deformity of toenail Depression with anxiety At risk for abuse of opiates Marijuana abuse Cocaine abuse Substance use disorder Alcoholism Restless legs syndrome (RLS) Anxiety and depression Recurrent cold sores Labral tear of right hip joint Excessive daytime sleepiness Loud snoring Frequent nocturnal awakening Difficulty sleeping Cough, persistent Osteoarthritis of right hip Chronic right hip pain Obesity (BMI 30-39.9) Chronic alcoholism in remission Obstruction of fallopian tube Surgical History H/O unilateral salpingectomy History of surgery Family History Father Medical history non-contributory Mother Medical history non-contributory Maternal Uncle OCD (obsessive compulsive disorder) Mental health disorder Brother Medical history non-contributory Maternal Grandfather Substance use disorder Paternal Grandfather Substance use disorder Social History Housing: House Patient Tobacco Use Status: Never used Tobacco e-Cigarette/Vaping Use: Never Used service: No Current occupational status: employed 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 1. Little interest or pleasure in doing things: more than half the days 2. Feeling down, depressed, or hopeless: more than half the days 3. Trouble falling or staying asleep, or sleeping too much: nearly every day 4. Feeling tired or having little energy: more than half the days 5. Poor appetite or overeating: nearly every day 6. Feeling bad about yourself - or that you are a failure or have let yourself or your family down: several days 7. Trouble concentrating on things, such as reading the newspaper or watching television: more than half the days 8. Moving or speaking so slowly that other people could have noticed. Or the o pposite - being so fidgety or restless that you have been moving around a lot more than usual: not at all 9. Thoughts that you would be better off or of hurting yourself in some way: not at all Total score: 15 Depression Screening Interpretation: Positive (Referred to) Depression Screening Follow-up: Existing condition, In treatment, New Medication prescribed and Community Mental Health Worker F/U Depression Screening Done: Yes Source: Developed by Drs. Edwar Sheets, Martha Lopez, Thang Ulloa and colleagues, with an educational senia from [employer]. Thrive Questionnaire Date Thrive assessed: 07/10/24 I am a: Patient What is your living situation today?: I have a steady place to live Within the past 12 months, did the food you bought not last and you didn't have the money to get more?: Never true Within the past 12 months, did you worry whether your food would run out before you got money to buy more?: Never true Do you have trouble paying for medicines?: No Do you have trouble getting transportation to medical appointments?: No Do you have trouble paying your heating and electricity bill?: No Do you have trouble taking care of your child, family member or friend?: No Do you have trouble with day-to-day activities such as bathing, preparing meals, shopping, managing finances, etc.?: No Are you currently unemployed and looking for a job?: No Are you interested in more education?: No Please select the resources that you would like help with: None Currently or been in a relationship where the following occur: No concerns reported THRIVE Score: 0 AUDIT C Alcohol Use Questionnaire (AUDIT-C) 1. How often do you have a drink containing alcohol?: Never Total Score: 0 TOMMY-7 AMB Questionnaire TOMMY-7 Date TOMMY - 7 assessed: 07/10/24 Feeling nervous, anxious, or on edge: 2 = More than half the days Not being able to stop or control worryin = Several days Worrying too much about different things: 2 = More than half the days Trouble relaxin = Several days Being so restless that it is hard to sit still: 0 = Not at all Becoming easily annoyed or irritable: 2 = More than half the days Feeling afraid as if something awful might happen: 0 = Not at all Total TOMMY-7 score (0-4 normal; 5-9 mild; 10-14 moderate; 15-21 severe): 8 Source: Developed by Drs. Edwar Sheets, Martha Lopez, Thang Ulloa and colleagues, with an educational senia from [employer]. TOMMY-7 Assessment Billing TOMMY-7 Assessment Tool: TOMMY-7 Assessment 73674 Review of Systems Const All systems reviewed & are unremarkable except as noted in HPI and below ENT Reports Normal hearing present Neuro Reports Normal hearing present and Denies Sensory deficit (Neuro) Physical exam (Primary Care) Vital Signs: Last Vital Signs Temp 97.9 F 07/10/24 09:49 Pulse 81 07/10/24 09:49 Resp 15 07/10/24 09:49 BP 132/82 07/10/24 09:49 Pulse Ox 98 07/10/24 09:49 Oxygen Delivery Method Room Air 07/10/24 09:49 BMI result Body Mass Index 41.2 Tobacco/Smoking Status: Tobacco use Status Tobacco use date assessed 07/10/24 07/10/24 09:53 Patient Tobacco Use Status Never used Tobacco 07/10/24 09:53 e-Cigarette/Vaping Use Never Used 07/10/24 09:53 PHQ-9: PHQ-9 Score PHQ-9: Total score 15 07/10/24 10:24 Depression Screening Interpretation: Positive (Referred to) Depression Screening Follow-up: Existing condition, In treatment, New Medication prescribed and Community Mental Health Worker F/U Thrive Assessment: Date of Thrive Assessment Date Thrive assessed 10/18/23 07/10/24 09:53 Currently or been in a relationship where the following occur: No concerns reported Const General: comfortable, no acute distress, alert and Physically active Nutritional Appearance: obese Orientation/consciousness: patient oriented x3 HENMT Ears: external ears normal General nose exam: Normal external nose present Eyes General: appearance normal, both eyes and all related structures Neck Neck: Yes full ROM, Yes no lymphadenopathy and Yes supple Resp Auscultation: clear to auscultation bilaterally Cardio Rate: regular rate Rhythm: regular rhythm Heart sounds: S1 normal heart sound present and S2 normal heart sound present GI Palpation (GI): Soft to palpation, nontender, no guarding and no masses General: Yes no CVA tenderness Back/Spine/Pelvis Back: no CVA tenderness and No back tenderness Skin Other: Multiple tattoos covering chest, back , arms General skin exam: no rashes or lesions noted Nails: yellow and thickened (Left great toe) Neuro General: patient oriented x3 Cranial nerves: Yes Normal hearing present Sensory Exam: No Sensory deficit (Neuro) Extrem Other: Pain on flexion extension of right hip, no gross bony deformity seen Psych Appearance: grossly normal and well kempt Mental Status: mental status grossly normal Speech and movement: Normal speech and movement present Affect: normal affect Coding Level of Care Code Est Pt Level 3 (43573) Diagnoses Depression with anxiety F41.8 Acquired deformity of toenail L60.8 Additional Codes TOMMY-7 Assessment Billing - TOMMY-7 Assessment Tool: TOMMY-7 Assessment 55443 ([id number]) Assessment & Plan Assessment & Plan (1) Depression with anxiety: Code(s): F41.8 - Other specified anxiety disorders Category: Medical Plan: We discussed various approaches for her depression and anxiety, considering Wellbutrin given its efficacy for depression and related eating disorders. She will use lorazepam judiciously for severe anxiety episodes.. An ADHD evaluation with a process improvement specialist is planned. Patient was informed and verbally consented to the use of an ambient scribe for clinic note documentation during this visit. (2) Acquired deformity of toenail: Comment: left toenail Code(s): L60.8 - Other nail disorders Category: Medical Plan: Podiatry consult ordered Orders: Referrals Psychiatry Referral F41.8 - Other specified anxiety disorders Podiatry Referral L60.8 - Other nail disorders Medications: New lorazepam 0.5 mg PO DAILY PRN 10 tabs 0RF anxiety
[2024-07-10 09:49] VITALS: BP 132/82; PULSE 81; RESP 15; TEMP 36.6; O2SAT 98; BMI 41.2
--- OUTSIDE RECORDS SUMMARY | 2024-07-10 10:04 | XMS_ITS | Encounter Summary ---
Author Organization [employer] [facility] Address [address] [place] [address] Care Team Providers Care Fish Roe Technician Name Role Phone Unavailable Primary Care Provider Unavailabl e Encounter Details Date Type Department Care Team (Latest Contact Info) Description 07/19/2018 Abstract [facility] CONVERSIONS Dental, Provider, DDS Social History Tobacco Use Types Packs/Day Years Used Date Smoking Tobacco: Never Assessed Comments Unknown Sex and Gender Information Value Date Recorded Sex Assigned at Female 03/22/2022 10:28 AM EDT Legal Sex Female 10:28 AM EDT Gender Identity Female 09/27/2022 2:09 PM EDT Sexual Orientation Don't know 09/27/2022 2: 09 PM EDT documented as of this encounter Plan of Treatment Not on file documented as of this encounter Visit Diagnoses Not on filedocumented in this encounter
--- OUTSIDE RECORDS SUMMARY | 2024-07-10 10:04 | XMS_ITS | Clinical Summary ---
Author Organization [employer] Address [address] [place] [address] Care Team Providers Care Blend Plant Operator Name Role Phone Unavailable Primary Care Provider Unavailabl e Social History Tobacco Use Types Packs/Day Years Used Date Smoking Tobacco: Never Assessed Comments Unknown Sex and Gender Information Value Date Recorded Sex Assigned at Female 03/22/2022 10:28 AM EDT Legal Sex Female 10:28 AM EDT Gender Identity Female 09/27/2022 2:09 PM EDT Sexual Orientation Don't know 09/27/2022 2: 09 PM EDT Plan of Treatment Health Maintenance Due Date Last Done Comments Depression Screening 1984 Alcohol/Substance Use Screening 1996 Tobacco Screening 1996 Family Planning (PISQ) 12/22/1999 Hepatitis B Vaccines (1 of 3 - 19+ 3-dose series) 12/22/2003 Pap Smear 2005 Cervical Cancer Screening 2014 HPV/Cotest 2014 Dental Prophylaxis 01/17/2019 07/19/2018, 05/26/2017 Dental Oral Exam 02/15/2019 08/14/2018, 05/26/2017, 07/07/2016 Dental X-Ray: Full Mouth 07/08/2019 07/07/2016 Dental X-Ray: Bitewings 08/16/2019 08/15/19 19, 07/07/2016 COVID-19 Vaccine ( - 2023-2 5 season) 2024 Influenza Vaccine (#1) 2024 DTaP/Tdap/Td Vaccines (2 - T d or Tdap) 09/14/2028 09/14/2018 Zoster Vaccines (1 of 2) 2034 RSV Patients and Patients Aged 60 years or older (1 - 1-dose 75+ series) 12/22/2059 HPV Vaccines Completed 08/15/2007, 04/19/2007, 02/20/2007 HIB Vaccines Aged Out No longer eligi ble based on patient's age to complete this topic Hepatitis A Vaccines Aged Out No long er eligible based on patient's age to complete this topic IPV Vaccines Aged Out No longer eligi ble based on patient's age to complete this topic Meningococcal Vaccine Aged Out No dinah carrol eligible based on patient's age to complete this topic Pneumococcal Vaccine: Pediatrics (0 to 5 Years) and At-Risk Patients (6 to 49) Years) Aged Out No longer eligible b ased on patient's age to complete this topic RSV under 20 months Aged Out No longe r eligible based on patient's age to complete this topic Rotavirus Vaccines Aged Out No longer eligible based on patient's age to complete this topic Procedures Procedure Name Priority Date/Time Associated Diagnosis Comments BITEWINGS - 4 RADIOGRAPHIC IMAGES Routine 08/14/2018 12:00 AM EDT PERIODIC ORAL EVALUATION - ESTABLISHED PATIENT Routine 08/14/2018 12:00 AM EDT PROPHYLAXIS - ADULT Routine 07/19/2018 1 2:00 AM EST INTRAORAL - COMPLETE SERIES OF RADIOGRAPHIC IMAGES Routine 07/07/2016 12:00 AM EST from Last 3 Months or Most Recently Relevant to Health Maintenance
== END 2024-07-10 10:34 | disposition home or self-care (01) ==
PROVIDERS: PCP Internal Medicine; Visit Provider Internal Medicine
DX: F41.8 Other specified anxiety disorders (principal); L60.8 Other nail disorders

== ENCOUNTER → 2024-07-10 09:18 | Outpatient (BNVA) | payer OTHER, SELFPAY | PROVIDERS: PCP Internal Medicine; Visit Provider Internal Medicine | DX: F41.8 Other specified anxiety disorders (principal); L60.8 Other nail disorders | CPT/HCPCS: 96127 ==

== ENCOUNTER → 2024-07-11 20:30 | Outpatient (REF) | payer OTHER, SELFPAY ==
--- OUTSIDE RECORDS SUMMARY | 2024-07-11 20:45 | XMS_ITS | Clinical Summary ---
Author Organization [employer] Address [address] [place] [address] Care Team Providers Care Regulatory Administrator Name Role Phone Unavailable Primary Care Provider [...]
--- OUTSIDE RECORDS SUMMARY | 2024-07-11 20:45 | XMS_ITS | Encounter Summary ---
Author Organization [facility] Address [address] [place] [address] Care Team Providers Care Water Server Name Role Phone Unavailable Primary Care Provider Unavailabl e Encounter Details Date Type Department Care Team (Latest Contact Info) Description 07/19/2018 Abstract [facility] CONVERSIONS Dental, Provider, DDS Social History Tobacco [...]
== END ==
LOC: HO.SL 20:30
PROVIDERS: PCP Internal Medicine; Visit Provider Nurse Practitioner Family
DX: G47.9 Sleep disorder, unspecified (principal); G47.00 Insomnia, unspecified; R06.83 Snoring; R05.3 Chronic cough
CPT/HCPCS: 95810

== ENCOUNTER → 2024-07-11 21:18 | Outpatient (BNV) | payer OTHER, SELFPAY | PROVIDERS: PCP Internal Medicine; Visit Provider Psychiatry & Neurology Neurology | DX: R06.83 Snoring (principal) | CPT/HCPCS: 95810 ==

== ENCOUNTER 2024-08-06 15:34 | Outpatient (AMB) | payer OTHER, SELFPAY ==
--- NOTE | 2024-08-14 16:27 | MHC.OFFVISPS ---
Intake Intake Visit Reasons: consultation Pewter Caster Required: No Allergies No Known Allergies Allergy (Verified 07/10/24 10:08) Medication List - Last Reconciled 08/14/24 by Serina Cardona APRN albuterol sulfate 90 mcg/actuation (Ventolin HFA) inhalation celecoxib (Celebrex) 200 mg PO BID duloxetine 30 mg PO DAILY lorazepam 0.5 mg PO DAILY PRN ondansetron 4 mg PO Q8H PRN risperidone (Risperdal) 2.5 mg orally Take 1/2 tab daily prn agitation and take one at bedtime every night; ropinirole 1-4 tabs orally bedtime; administer 1-3 hours before bedtime valacyclovir 2,000 mg (2 x 1 gram) PO Q12H PRN HPI- Psychiatric Chief Complaint: consultation HPI Narrative: 38-year-old female referred by PCP with concerns regarding depression and anxiety. The patient?s major depressive disorder has been characterized by increased frequency of low energy and motivational levels. These changes have occurred without clear triggers and are partly linked to her history of substance use, now in sustained remission for over 13 years. Generalized Anxiety Disorder manifests with continuous nervousness, which was controlled to some degree during periods of substance use. Patient experiences exacerbations especially during claustrophobic situations. pt recently broke up w partner to focus on her own mental health; pt had episodes of extreme emotions, fear, anger and verbal angry outbursts. 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 She did not feel suicidal rather she felt overwhelmed and was attempting to calm down. pt has many supports from 12 step group and work, and family. PHQ9= 21 and GAD7= 20. she is not currently suicidal or homicidal; no sign of tam; no psychosis. Pt wants help. Past Psychiatric History: 2008 on antidepressant prozac ; 2015 inpatient after a friend meds were changed from prozac to paxil outpatient therapy x 2 yrs hx cutting as teen/20s. Subjective Subjective Subjective Medication Compliance: Yes Side effects from medications: No Review of Systems Medical Review of Systems: unchanged Mental Status Exam Mental Status Exam Patient Appearance: Well Grooomed and Appropriate Patient Orientation: Person, Place, Time and Situation Level of Consciousness: Appropriate and Alert Patient Behavior: Appropriate, Talkative and Crying Mood Description: Depressed, Anxious and Sad Affect Description: Depressed, Fearful, Anxious and Sad Patient Cognition Impaired: No Ability to Follow Directions: Good Speech Pattern: Clear, Perseverating, Rapid and Animated Memory Description: Intact Hallucinations: None Delusions: Not Present Thought Process: Intact and Rumination Thought Content: positive for Intact, positive for Perseveration and positive for Loose Associations Judgement: Good Assessment and Plan Assessment & Plan (1) Depression with anxiety: Status: Acute Code(s): F41.8 - Other specified anxiety disorders (2) PTSD (post-traumatic stress disorder): Status: Acute Code(s): F43.10 - Post-traumatic stress disorder, unspecified Plan start cymbalta 30mg daily startrisperdal 2.5mg bid return in one week Medications: New risperidone (Risperdal) 2.5 mg orally Take 1/2 tab daily prn agitation and take one at bedtime every night; 30 tabs 0RF risperidone (Risperdal) 2.5 mg orally Take 1/2 tab daily prn agitation and take one at bedtime every night; 30 tabs 0RF duloxetine 30 mg PO DAILY 30 caps 0RF duloxetine 30 mg PO DAILY 30 caps 0RF Counseling and coordination of Care Pt. Self Management counseling: Maintenance-social rhythm, Sleep hygiene, Behavior activation, General coping skills and Problem solving Medication management counseling: Effectiveness, Side effects, Dosing range, Duration, Drug interaction and Adherence Diagnosis and Prognosis Counseling: Accuracy of diagnosis, Prognosis over time, Impact of diagnosis on life functions, Impact of family relationship, Problematic behaviors secondary to diagnosis and Adequacy of current interventions Details: I spent 75 minutes reviewing the record, seeing the patient and documenting in the medical record. Counseling provided to the patient/caregiver as outlined below. Addressed patient/caregiver concerns regarding current medication regime including effective adherence. Addressed patient/caregiver concerns regarding diagnosis and prognosis including accuracy of diagnosis, prognosis over time, impact of diagnosis. Addressed patient/caregiver concerns regarding impact of recent stressors. [facility] Medical History (Updated 08/14/24 @ 16:31 by Serina Cardona APRN) Acquired deformity of toenail Depression with anxiety At risk for abuse of opiates Marijuana abuse Cocaine abuse Substance use disorder Alcoholism Restless legs syndrome (RLS) Anxiety and depression Recurrent cold sores Labral tear of right hip joint Excessive daytime sleepiness Loud snoring Frequent nocturnal awakening Difficulty sleeping Cough, persistent Osteoarthritis of right hip Chronic right hip pain Obesity (BMI 30-39.9) Chronic alcoholism in remission Obstruction of fallopian tube Surgical History H/O unilateral salpingectomy History of surgery Family History Father Medical history non-contributory Mother Medical history non-contributory Maternal Uncle OCD (obsessive compulsive disorder) Mental health disorder Brother Medical history non-contributory Maternal Grandfather Substance use disorder Paternal Grandfather Substance use disorder Social History Housing: House Patient Tobacco Use Status: Never used Tobacco e-Cigarette/Vaping Use: Never Used service: No Current occupational status: employed 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 Attends college with anticipated graduation September 2024. Substance History: started using alcohol and drugs age 13 ; sober for 13.5 yrs uses 12 step recovery Trauma History: yes Coding Level of Care Code Psych Diag Eval w/Med (68402) Diagnoses Depression with anxiety F41.8 PTSD (post-traumatic stress disorder) F43.10
== END 2024-08-06 17:06 | disposition home or self-care (01) ==
LOC: HO.HOP 15:34
PROVIDERS: PCP Internal Medicine; Visit Provider Clinical Nurse Specialist Psychiatric/Mental Health
DX: F41.8 Other specified anxiety disorders (principal); F43.10 Post-traumatic stress disorder, unspecified
CPT/HCPCS: 90792

== ENCOUNTER → 2024-08-06 15:34 | Outpatient (BNVA) | payer OTHER, SELFPAY | PROVIDERS: PCP Internal Medicine; Visit Provider Clinical Nurse Specialist Psychiatric/Mental Health | DX: F32.A Depression, unspecified (principal); F41.8 Other specified anxiety disorders; F43.10 Post-traumatic stress disorder, unspecified; Z71.89 Other specified counseling | CPT/HCPCS: 90792 ==

== ENCOUNTER 2024-08-14 16:32 | Outpatient (AMB) | payer OTHER, SELFPAY ==
--- NOTE | 2024-09-06 14:01 | MHC.OFFVISPS ---
Intake Intake Visit Reasons: f/u consultation Allergies No Known Allergies Allergy (Verified 07/10/24 10:08) Medication List - Last Reconciled 09/06/24 by Serina Cardona APRN albuterol sulfate 90 mcg/actuation (Ventolin HFA) inhalation celecoxib (Celebrex) 200 mg PO BID duloxetine 30 mg PO DAILY lorazepam 0.5 mg PO DAILY PRN ondansetron 4 mg PO Q8H PRN risperidone 0.25 mg PO DAILY PRN risperidone (Risperdal) 0.5 mg PO BEDTIME ropinirole 1-4 tabs orally bedtime; administer 1-3 hours before bedtime valacyclovir 2,000 mg (2 x 1 gram) PO Q12H PRN HPI- Psychiatric Chief Complaint: f/u consultation HPI Narrative: pt improved. tolerating meds well. PHQ9=14 and GAD7= 12. pt reports no self harm. She started therapy with Becky Logunova. no SI or HI. mood more stable. Past Psychiatric History: 2007 on antidepressant prozac ; 2014 inpatient after a friend meds were changed from prozac to paxil outpatient therapy x 2 yrs hx cutting as teen/20s. Subjective Subjective Subjective Medication Compliance: Yes Side effects from medications: No Review of Systems Medical Review of Systems: unchanged Mental Status Exam Mental Status Exam Patient Appearance: Well Grooomed and Appropriate Patient Orientation: Person, Place, Time and Situation Level of Consciousness: Awake and Appropriate Patient Behavior: Appropriate Mood Description: Calm Affect Description: Calm Patient Cognition Impaired: No Ability to Follow Directions: Good Speech Pattern: Clear Memory Description: Intact Hallucinations: None Delusions: Not Present Thought Process: Intact Thought Content: positive for Intact Judgement: Good Assessment and Plan Assessment & Plan (1) PTSD (post-traumatic stress disorder): Status: Acute Code(s): F43.10 - Post-traumatic stress disorder, unspecified Plan continue cymbaltal 30 mg daily continue risperdal 0.5mg at bedtime continue risperdal 0.25mg qd prn agitation continue lorazepam 0.5mg qd prn panic retrun in 4-6 weeks Counseling and coordination of Care Pt. Self Management counseling: Maintenance-social rhythm, Mod caffeine/ETOH intake, Nutrition education and improvement, Sleep hygiene and General coping skills Medication management counseling: Effectiveness, Side effects, Dosing range, Duration, Drug interaction and Adherence Diagnosis and Prognosis Counseling: Accuracy of diagnosis, Prognosis over time, Impact of diagnosis on life functions, Impact of family relationship, Problematic behaviors secondary to diagnosis and Adequacy of current interventions Details: I spent 35 minutes reviewing the record, seeing the patient and documenting in the medical record. Counseling provided to the patient/caregiver as outlined below. Addressed patient/caregiver concerns regarding current medication regime including effective adherence. Addressed patient/caregiver concerns regarding diagnosis and prognosis including accuracy of diagnosis, prognosis over time, impact of diagnosis. Addressed patient/caregiver concerns regarding impact of recent stressors. [facility] Medical History (Updated 08/14/24 @ 16:31 by Serina Cardona APRN) Acquired deformity of toenail Depression with anxiety At risk for abuse of opiates Marijuana abuse Cocaine abuse Substance use disorder Alcoholism Restless legs syndrome (RLS) Anxiety and depression Recurrent cold sores Labral tear of right hip joint Excessive daytime sleepiness Loud snoring Frequent nocturnal awakening Difficulty sleeping Cough, persistent Osteoarthritis of right hip Chronic right hip pain Obesity (BMI 30-39.9) Chronic alcoholism in remission Obstruction of fallopian tube Surgical History H/O unilateral salpingectomy History of surgery Family History Father Medical history non-contributory Mother Medical history non-contributory Maternal Uncle OCD (obsessive compulsive disorder) Mental health disorder Brother Medical history non-contributory Maternal Grandfather Substance use disorder Paternal Grandfather Substance use disorder Social History Housing: House Patient Tobacco Use Status: Never used Tobacco e-Cigarette/Vaping Use: Never Used service: No Current occupational status: employed 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 Attends college with anticipated graduation September 2024. Substance History: started using alcohol and drugs age 13 ; sober for 13.5 yrs uses 12 step recovery Trauma History: yes Coding Level of Care Code Est Pt Level 4 (64169) Diagnoses PTSD (post-traumatic stress disorder) F43.10
== END 2024-08-14 18:08 | disposition home or self-care (01) ==
LOC: HO.HOP 16:32
PROVIDERS: PCP Internal Medicine; Visit Provider Clinical Nurse Specialist Psychiatric/Mental Health
DX: F43.10 Post-traumatic stress disorder, unspecified (principal)
CPT/HCPCS: 99214

== ENCOUNTER → 2024-08-14 16:32 | Outpatient (BNVA) | payer OTHER, SELFPAY | PROVIDERS: PCP Internal Medicine; Visit Provider Clinical Nurse Specialist Psychiatric/Mental Health ==

== ENCOUNTER 2024-09-18 16:20 | Outpatient (AMB) | payer OTHER, SELFPAY ==
--- NOTE | 2024-09-18 16:57 | A.OFFPSYCH_ITS ---
Intake Intake Visit Reasons: f/u consultation Client Development Consultant Required: No Allergies No Known Allergies Allergy (Verified 07/10/24 10:08) Medication List - Last Reconciled 09/18/24 by Serina Cardona APRN albuterol sulfate 90 mcg/actuation (Ventolin HFA) inhalation celecoxib (Celebrex) 200 mg PO BID duloxetine 30 mg PO DAILY lorazepam 0.5 mg PO DAILY PRN ondansetron 4 mg PO Q8H PRN risperidone (Risperdal) 0.5 mg PO BEDTIME risperidone 0.25 mg PO DAILY ropinirole 1-4 tabs orally bedtime; administer 1-3 hours before bedtime valacyclovir 2,000 mg (2 x 1 gram) PO Q12H PRN HPI- Psychiatric Chief Complaint: f/u consultation HPI Narrative: Pt reports improvement; she continues to struggle with depression and anxiety but feels she is making progress. she has increased self care behaviors. no self ham. she reports working hard in therapy to identify triggers and heal /grieve losses, PHQ9=13 and GAD7=15. Pt does not want tochange her meds feels they are working well. no side effects. she is having some trouble sleepin through the night and waking 2- 4 times a night Past Psychiatric History: 2008 on antidepressant prozac ; 2015 inpatient after a friend meds were changed from prozac to paxil outpatient therapy x 2 yrs hx cutting as teen/20s. Subjective Subjective Subjective Medication Compliance: Yes Side effects from medications: No Review of Systems Medical Review of Systems: unchanged Mental Status Exam Mental Status Exam Patient Appearance: Well Grooomed Patient Orientation: Person, Place, Time and Situation Level of Consciousness: Awake and Appropriate Patient Behavior: Appropriate and Crying Mood Description: Sad Affect Description: Sad Patient Cognition Impaired: No Ability to Follow Directions: Good Speech Pattern: Clear Memory Description: Intact Hallucinations: None Delusions: Not Present Thought Process: Intact and Goal Oriented Thought Content: positive for Intact and positive for Goal Oriented Judgement: Good Assessment and Plan Assessment & Plan (1) PTSD (post-traumatic stress disorder): Status: Acute Code(s): F43.10 - Post-traumatic stress disorder, unspecified Plan continue current medications consider increase in cymbalta- discussed pro and cons and agree to keep dose atthis level for now continue therpay utilize prns as recommended retrun in 8 week s Counseling and coordination of Care Pt. Self Management counseling: Maintenance-social rhythm, Mod caffeine/ETOH intake, Nutrition education and improvement and Sleep hygiene Medication management counseling: Effectiveness, Side effects, Dosing range, Duration, Drug interaction and Adherence Diagnosis and Prognosis Counseling: Accuracy of diagnosis, Prognosis over time, Impact of diagnosis on life functions, Impact of family relationship, Problematic behaviors secondary to diagnosis and Adequacy of current interventions Details: I spent 35 minutes reviewing the record, seeing the patient and documenting in the medical record. Counseling provided to the patient/caregiver as outlined below. Addressed patient/caregiver concerns regarding current medication regime including effective adherence. Addressed patient/caregiver concerns regarding diagnosis and prognosis including accuracy of diagnosis, prognosis over time, impact of diagnosis. Addressed patient/caregiver concerns regarding impact of recent stressors. [facility] Medical History (Updated 08/14/24 @ 16:31 by Serina Cardona APRN) Acquired deformity of toenail Depression with anxiety At risk for abuse of opiates Marijuana abuse Cocaine abuse Substance use disorder Alcoholism Restless legs syndrome (RLS) Anxiety and depression Recurrent cold sores Labral tear of right hip joint Excessive daytime sleepiness Loud snoring Frequent nocturnal awakening Difficulty sleeping Cough, persistent Osteoarthritis of right hip Chronic right hip pain Obesity (BMI 30-39.9) Chronic alcoholism in remission Obstruction of fallopian tube Surgical History H/O unilateral salpingectomy History of surgery Family History Father Medical history non-contributory Mother Medical history non-contributory Maternal Uncle OCD (obsessive compulsive disorder) Mental health disorder Brother Medical history non-contributory Maternal Grandfather Substance use disorder Paternal Grandfather Substance use disorder Social History Housing: House Patient Tobacco Use Status: Never used Tobacco e-Cigarette/Vaping Use: Never Used service: No Current occupational status: employed 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 Attends college with anticipated graduation September 2024. Substance History: started using alcohol and drugs age 13 ; sober for 13.5 yrs uses 12 step recovery Trauma History: yes Coding Level of Care Code Est Pt Level 4 (71519) Diagnoses PTSD (post-traumatic stress disorder) F43.10
--- OUTSIDE RECORDS SUMMARY | 2024-09-18 18:27 | XMS_ITS ---
Author Organization [facility] [place] Address [address] [facility], [place] [address] Care Team Providers Care Software Requirements Engineer Name Role Phone Saad HERNANDEZ, Najma Wilson Primary Care Provider Un available Black, Leah Unavailable [phone] Allergies No Known Allergies REASON FOR VISIT pcp-06/2024, Fungal Nails Medications Medication SIG (Take, Route, Fr equency, Duration) Notes Start Date End Date Status Celecoxib 200 MG 1 capsule as needed Orally Once a day Active risperiDONE 0.5 MG 1 tablet Orally Once a day Active Vitamin D3 Active rOPINIRole HCl Activ e DULoxetine HCl 30 MG 1 capsule Orally Once a day Active Ciclopirox 0.77 % 1 application thin f ilm topically to nails Externally Once a day for 30 days Active Urea Nail 45 % 1 application as nee ded Externally Once a day 09/07/2024 Active Social History Tobacco Use: Social History Observation Description Date Details (start date - stop date) Never Smoker NA - NA Tobacco Control (Standard) Question Answer Notes Tobacco use: Nonsmoker Additional Findings: Tobacco non-user Current no nsmoker AUDIT-C (Standard) Question Answer Notes Did you have a drink containing alcohol in the p ast year? 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 years Vital Signs Blood pressure systolic 120 mm Hg 09/08/19 25 Blood pressure diastolic 80 mm Hg 025 Height 5ft 4in in 09/07/2024 Weight 230 lbs 09/07/2024 BMI 39.48 kg/m2 09/07/2024 Encounters Encounter Location Date Provider Diagnosis [facility] [address] [address] 09/07/2024 Leah Light Onychomycosis B35.1 and Pain in left toe(s) M79.675 Assessments Encounter Date Diagnosis (ICD Code) Assessment Notes Treatment Notes Treatment Clinical Notes Section Notes 09/07/2024 Onychomycosis (ICD-10 - B35.1) 09/07/2024 Pain in left toe(s) (ICD-10 - M79.675) Plan Of Treatment Medication Medication Name Sig Start Date Stop Date Notes Ciclopirox 0.77 % 1 application thin f ilm topically to nails Externally Once a day for 30 days Urea Nail 45 % 1 application as nee ded Externally Once a day 09/07/2024 Pending Test Test Name Order Date Nail Panel 09/07/2024 Next Appt Details Follow Up: 2-3 Months, Reaso n: Provider Name:Leah Light , 12/10/2024 04:00:00 PM, [address] [place] [address], [address], Progress Notes * Ron BRIDGESyDOB:05/1985 (38 yo F)Acc No.[id number]:09/07/2024 Progress Notes Patient:?Ron BRIDGES Provider:?Leah Light DPM :1985???Age:38 Y???Sex:Female D ate:09/07/2024 Address:[address] [place], [place] [id number] Pcp:Urmila Simms Subjective: * Chief Complaints: * ???Pcp-06/2024Fungal Nails * HPI: ???Painful Nails:?Nature:?aching, tender, discolored, thick.?Location:?, Great toe, Left foot.?Duration:?, 1 year or more.?Course:?worse.?Aggravated by:?shoegear causing difficulty standing/walking.?Treatments:?none.? * ROS:?General/Constitutional:?Nausea?denies.?Vomiting?denies.?Hunger Thirst?denies.?Loss appetite?denies.?Chills?denies.?Fatigue?denies.?Fever?denies.?Night Sweats?denies.?Unexplained weight loss?denies.?Unexplained weight gain?denies.?HEENTM:?Dentures?denies.?Dizziness?denies.?Glasses/contacts?admits.?Retinopathy?de nies.?Blurred/double vision?denies.?TMJ?denies.?Discharge/drainage?denies.?Implants?denies.?Sore throat?denies.?Dental implants?denies.?Hard of hearing ?denies.?Difficulty chewing/swallowing/speaking?denies.?Nose bleeds?denies.?Sore mouth?denies.?Respiratory:?On Oxygen?denies.?Pneumonia/pleurisy?denies.?Bronchitis?denies.?Emphysema?denies.?C oughing?denies.?Cough blood?denies.?Shortness of breath?denies.?Wheezing?denies.?Cardiovascular:?Pacemaker?denies.?MVP?denies.?WPW?denies.?CHF?denies.?Heart attack?denies.?Septal defect?denies.?Rapid beat?denies.?Chest pain ?denies.?Atrial Fib.?denies.?Murmur/Palpitations?denies.?Gastrointestinal:?Hemorrhoids?denies.?Stomach/Abdominal pain?denies.?Dark blood stool?denies.?Irritable bowel ?denies.?Constipation?denies.?Diarrhea?denies.?Hematology:?Swelling?denies.?Clots?denies.?Varicose Veins?denies.?Bruising?denies.?Bleeding problem?denies.?Genitourinary:?Blood urine?denies.?Frequent/Painfu/urination/bladder control?denies.?Kidney stones?denies.?Infection (UTI)?denies.?Nephropathy?denies.?sex trans dis (STD)?denies.?Prostate?denies.?Musculoskeletal:?Hammertoes?denies.?Bunions?denies.?Back Pain?admits.?Muscle Cramps/ Resting?denies.?Muscle cramps / walking?denies.?Generalized aches and pains?admits.?Weakness?denies.?Integ.:?Gardner?denies.?Scars?denies.?Corns/calluses?denies.?Ingrown nails?admits.?Painful nails?denies.?Open Sores?denies.?Rashes?denies.?Neurologic:?Difficulty sleeping?denies.?Brain disorder?denies.?Numbness?denies.?Balance trouble?denies.?Confusion?denies.?Fainting/blackouts?denies.?Tingling?denies.?Tr emors?denies.? * Medical History:? * Surgical History:?neymar hunter sx 02/2021 * Hospitalization/Major Diagno stic Procedure:?Denies Past Hospitalization * Family History:?Mother: stone gudino.?Father: alive.?Siblings: high blood pressure.?1 brother(s) . .? * Social History:?Tobacco Use:?Tobacco Control (Standard)?Tobacco use:?Nonsmoker ?Additional Findings: Tobacco non-user?Current nonsmoker ???Drugs/Alcohol:?Drugs?Have you used drugs other than those for medical reasons in the past 12 months??No ???Miscellaneous:?Caffeine: yes. ?Children: no. ?Exercise: Job is active. ?Marital status: . 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 * Medications:?TakingCelecoxib 200 MG Capsule 1 capsule as needed Orally Once a day Vitamin D3 risperiDONE 0.5 MG Tablet 1 tablet Orally Once a day DULoxetine HCl 30 MG Capsule Delayed Release Particles 1 capsule Orally Once a day rOPINIRole HCl Medication List reviewed and reconciled with the patientTaking Celecoxib 200 MG Capsule 1 capsule as needed Orally Once a day Taking Vitamin D3 Taking risperiDONE 0.5 MG Tablet 1 tablet Orally Once a day Taking DULoxetine HCl 30 MG Capsule Delayed Release Particles 1 capsule Orally Once a day Taking rOPINIRole HCl Medication List reviewed and reconciled with the patient * Allergies:?N.K.D.A.yes[Aller gies Verified] Objective: * Vitals:?Ht: 5ft 4in, Wt:230, BMI:39.48, Shoe size: 8.5-9, BP:120/80mm Hg, Ht-cm: 162.56 cm, Wt-k.33 kg. * Examination: ???General Examination: ?GENERAL APPEARANCE:?Reveals a pleasant, alert, well nourished, well- developed, well hydrated individual, who demonstrates proper attention to hygiene/body habitus, and is in no acute distress, Pt serves as own historian for office visit today.?ORIENTED:?person, place, and time.?Neurological: ?SENSORY:?Neurological exam reveals intact sensorium, pain sensation normal, vibration sensation intact, pinprick sensation is normal in the lower extremities, Pt denies, anesthesia, burning, paresthesia, tingling, B/L.?Vascular: ?DP PULSES (B):?3/4, B/L.?PT PULSES (B):?3/4, B/L.?CAPILLARY FILL TIME:?immediate, all digits, B/L.?TROPHIC CONDITION-TEXTURE/ELASTICITY/TURGOR/HAIR GROWTH (B):?normal, B/L.?TEMPERTURE GRADIENT (C):?normal, warm to cool, proximal to distal, B/L, B/L.?PIGMENTATION:?normal, B/L.?EDEMA (C):?absent, B/L.?Dermatologic: ?SKIN FINDINGS:?Skin exam reveals normal color, texture, elasticity, and turgor. There are no masses, nor excrescences. The interspaces are clear, B/L.?Nails: ?NAILS are:?Elongated, overgrown, dystrophic, lytic, greater than 3mm thick, discolored and friable with crumbly malodorous subungual debris, with pain on palpation, TA.? Assessment: * Assessment: 1.?Pain in left toe(s) - M79 .675???2.?Onychomycosis - B35.1 (Primary)???Specify :Chronic problem, Worse (4) Rx Management (4)??? Plan: * Treatment: * Procedure Codes:? * Preventive Medicine:? ??Counseling:?Discussion:?-03: Office or other outpatient visit for the evaluation and management of a new patient, which required a medically appropriate history and/or examination and LOW level of DECISION MAKING for: 1 STABLE ACUTE UNCOMPLICATED PROBLEM, 2 OR MORE MINOR PROBLEMS, OR 1 STABLE CHRONIC PROBLEM, THAT POSE(S) A LOW RISK FOR MORBIDITY/MORTALITY. The visit on the day of the encounter encompassed interpreting the data and educating the patient as to the nature of their condition, treatment options available according to their individual PMH, meds, allergies, and overall health/living conditions, as well as any potential risks or complications that may occur from a failure to adhere to, and participate in, the recommended course of therapy. The discussion included a complete verbal, and/or written explanation of the examination results, any x-rays taken, the proposed diagnosis, and outline of the treatment plan. A schedule for future care needs was also explained. The patient verbalized an understanding of the instructions at this time and agreed to be an active participant in their treatment. If the patient should think of any questions or concerns after the visit, I have encouraged the patient to call the office.?Fungal Nail Counseling:?The patient was counseled on the diagnosis, potential etiologies (including, but not limited to, environmental factors, genetic, immune deficiency), and the multiple treatment options for Onychomycosis. We discussed the risks and benefits of each option from performing no treatment, to ultraviolet light shoe treatment, to laser nail treatment, to applying topical antifungals, to taking oral antifungal medication, to surgical removal of the involved nail(s) with or without performing a matricectomy, or any combination thereof. We discussed the advantages and disadvantages of each of possible treatment and importance for adherence to all the recommended therapies for optimum success. This includes the necessity for weekly emery board self nail home debridements, and control the nail and skin environment as much as possible by only using a fresh, dry pair of shoes/socks each day, as well as keeping the skin as dry as possible through the use of sprays/powders if necessary. The patient was instructed to discard the emery board after use to prevent reinfection of the involved nail(s). We discussed the mycological and visual clinical effectiveness of topical vs oral antifungal treatments as well as each ones potential side effects and/or any patient- specific medication interactions. We discussed the reasons behind the important requirement of regular liver function testing with oral antifungal therapy for safety. Patient questions regarding use, dosage, successful outcomes, blood tests, and possible pharmaceutical interactions were reviewed and the patient verbalized that all answers were clearly understood, The patient presently prefers topical treatment, Discussed and recom biopsy to confirm the patients condition, Ciclopirox 0.77 gel was Rxed. Urea nail gel 45% Apply as directed to nails twice daily till cultrue /nail panel is received, Performance of this nail treatment by a nonprofessional would put this patients foot and overall health at risk. Therefore, debridement to affected nail(s), as described in exam, was performed exclusively by the physician of record to reduce/remove overall nail length, girth, thickness, subungual debris, and necrotic tissue, by manual and/or electrical means through the use of a nail nipper and/or dremel-type miter grinder operator, to a more viable healthy nail plate or bed tissue. Silver nitrate used for any petechial bleeding as necessary.? * Follow Up:?2-3 Months * Images: * Sign off status: Completed true * Provider:?Leah Light DPM Date:?2024 Generated for Marline blank/Luke/eTransmitting on:?09/18/2024 06:26 PM EDT History and Physical Notes * HPI (History of Present Illness) Category Sub-Category Detail Notes Category Not es Painful Nails Aggravated by: shoegear causing difficulty standing/walking Course: worse Duration: , 1 year or more Location: , Great toe, Left fo ot Nature: aching, tender, disc olored, thick Treatments: none Examination Category Sub-Category Detail Notes Category Not es Neurological SENSORY: Neurological exa m reveals intact sensorium, pain sensation normal, vibration sensation intact, pinprick sensation is normal in the lower extremities, Pt denies, anesthesia, burning, paresthesia, tingling, B/L Dermatologic SKIN FINDINGS: Skin exam reveal s normal color, texture, elasticity, and turgor. There are no masses, nor excrescences. The interspaces are clear, B/L General Examination GENERAL APPEARANCE: Reveals a pleasant, alert, well nourished, well-developed, well hydrated individual, who demonstrates proper attention to hygiene/body habitus, and is in no acute distress, Pt serves as own historian for office visit today ORIENTED: person, place, and t kaylie Vascular DP PULSES (B): 3/4, B/L PT PULSES (B): 3/4, B/L CAPILLARY FILL TIME: immediate, all digi ts, B/L TEMPERTURE GRADIENT (C): normal, warm to cool, proximal to distal, B/L, B/L TROPHIC CONDITION-TEXTURE/ELASTICITY/TURGOR/HAIR GROWTH (B): normal, B/L EDEMA (C): absent, B/L PIGMENTATION: normal, B/L Nails NAILS are: Elongated, overg rown, dystrophic, lytic, greater than 3mm thick, discolored and friable with crumbly malodorous subungual debris, with pain on palpation, TA
--- OUTSIDE RECORDS SUMMARY | 2024-09-18 18:27 | XMS_ITS | Clinical Summary ---
Author Organization [employer] Address [address] [facility] [address]t [place] [address] Care Team Providers Care Pre Sales Systems Engineer Name Role Phone Unavailable Primary Care Provider [...]
--- OUTSIDE RECORDS SUMMARY | 2024-09-18 18:27 | XMS_ITS ---
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 Generated for Printi ng/Faxing/eTransmitting on:?09/18/2024 06:27 PM EDT
--- OUTSIDE RECORDS SUMMARY | 2024-09-18 18:27 | XMS_ITS | Encounter Summary ---
Author Organization [facility] Address [address] [facility] [address] [place] [address] Care Team Providers Care Training And Development Director Name Role Phone Unavailable Primary Care Provider Unavailabl e Encounter Details Date Type Department Care Team (Latest Contact Info) Description 07/19/2018 Abstract [facility] CONVERSIONS Dental, Provider, DDS Social [...]
--- OUTSIDE RECORDS SUMMARY | 2024-09-18 18:27 | XMS_ITS ---
Author Organization [facility] Address [address] [place] [address] Care Team Providers Care Rn Plastic Surgery Name Role Phone Saad HERNANDEZ, Najma Wilson Primary Care Provider Un available Leah Light Unavailable [phone] REASON FOR VISIT Bako Encounters Encounter Location Date Provider Diagnosis [facility] [address] [place] [address] 09/07/2024 Leah Light Plan Of Treatment Next Appt Details Provider Name:Leah Mark Light , 12/10/2024 04:00:00 PM, [address] [place], [address], Progress Notes * CYRUSRon ACEVEDOyDOB:05/1985 (38 yo F)Acc No.[id number]:09/07/2024 Patient:?Ron BRIDGES :1985???Age:38 Y???Sex:Female Address:[address] [place] [address], [place], [address] * true * Date:? Generated for Printi ng/Fajo anng/eTransmitting on:?09/18/2024 06:26 PM EDT
--- OUTSIDE RECORDS SUMMARY | 2024-09-18 18:27 | XMS_ITS | Patient Health Record ---
Author Organization [employer] [facility] [employer] [facility] Address [address] [place] [address] Care Team Providers Care Receivable Manager Name Role Phone Saad HERNANDEZ, Najma Wilson Primary Care Provider Un available Black, Leah Unavailable [phone] Nita Soliz Unavailable [phone] Allergies No Known Allergies Reason For Referral No Information Medications Medication SIG (Take, Route, Fr equency, Duration) Notes Start Date End Date Status Ciclopirox 0.77 % 1 application thin f ilm topically to nails Externally Once a day for 30 days Active Celecoxib 200 MG 1 capsule as needed Orally Once a day Active Urea Nail 45 % 1 application as nee ded Externally Once a day 09/07/2024 Active risperiDONE 0.5 MG 1 tablet Orally Once a day Active Vitamin D3 Active rOPINIRole HCl Activ e DULoxetine HCl 30 MG 1 capsule Orally Once a day Active Vital Signs Blood pressure diastolic 80 mm Hg 09/07/2024 Height 5ft 4in in 09/07/2024 Blood pressure systolic 120 mm Hg 09/07/2024 Weight 230 lbs 09/07/2024 BMI 39.48 kg/m2 09/07/2024 Encounters Encounter Location Date Provider Diagnosis [address] [address] 09/07/2024 Leah Black Onychomycosis B35.1 and Pain in left toe(s) M79.675 [facility] [address] [place] [address] 08/09/2024 Nita Soliz [facility] [address] [place] [address] 09/07/2024 Leah Light Assessments Encounter Date Diagnosis (ICD Code) Assessment Notes Treatment Notes Treatment Clinical Notes Section Notes 09/07/2024 Pain in left toe(s) (ICD-10 - M79.675) 09/07/2024 Onychomycosis (ICD-10 - B35.1) Plan Of Treatment Pending Test Test Name Order Date Nail Panel 09/07/2024 Next Appt Details Provider Name:Leah Light , 12/10/2024 04:00:00 PM, [address] [facility], [place], [address], Insurance Providers Payer Name Payer Address Payer Phone Subscriber Number Group Number Insured Name Patient Relationship to Insured Coverage Start Date Coverage End Date [facility] [address] [place] [address] [id number] Kami Montanez Self - patient is the insured Medical (General) History Medical History History ICD Code Anemia Back,Hip,and Knee pain Depression Surgical History Surgery Date(Month/Year) reproductive sx 02/2021
== END 2024-09-18 16:57 | disposition home or self-care (01) ==
LOC: HO.HOP 16:20
PROVIDERS: PCP Internal Medicine; Visit Provider Clinical Nurse Specialist Psychiatric/Mental Health
DX: F43.10 Post-traumatic stress disorder, unspecified (principal)
CPT/HCPCS: 99214

== ENCOUNTER 2024-10-23 09:34 | Inpatient (IN) | payer OTHER, SELFPAY ==
--- NOTE | 2024-10-23 | ECG_ITS ---
Test Reason : WELLNESS CHECK Blood Pressure : */* mmHG Vent. Rate : 75 BPM Atrial Rate : 75 BPM P-R Int : 180 ms QRS Dur : 80 ms QT Int : 374 ms P-R-T Axes : 24 -1 2 degrees QTcB Int : 417 ms Normal sinus rhythm Normal ECG No previous ECGs available Referred By: Generic ED Physician Electronically Signed By: AUDREY DOMINGO
[2024-10-23 09:36] VITALS: BP 128/89; PULSE 106; RESP 20; TEMP 36.7; O2SAT 99; BMI 36.9
--- NOTE | 2024-10-23 09:45 | PC.NURSE ---
States that she took Risperidone about 1 hour ago (~8:45am) to attempt to alleviate anxiety without effect.
--- NOTE | 2024-10-23 10:34 | PC.NURSE ---
Addendum entered by Ivonne Julien RN 10/23/24 10:35: Patient is a 38-year-old female presenting with SI with thoughts of driving off a bridge. PMH: depression and anxiety, major depressive disorder has been characterized by increased frequency of low energy and motivational levels, and generalized Anxiety Disorder manifests with continuous nervousness. Patient alert, oriented and crying. Patient states has experienced a lot of grief including a recent divorce, loss of her stepchildren and a recent relationship due to a psychotic break 3 months ago. Patient expresses loneliness, helplessness and the feeling she is not good enough. Patient has been sober for 13 1/2 years. Emotional support provided. Process reviewed. Pending care team consult. Original Note: Medical History Acquired deformity of toenail Depression with anxiety At risk for abuse of opiates Marijuana abuse Cocaine abuse Substance use disorder Alcoholism Restless legs syndrome (RLS) Anxiety and depression Recurrent cold sores Labral tear of right hip joint Excessive daytime sleepiness Loud snoring Frequent nocturnal awakening Difficulty sleeping Cough, persistent Osteoarthritis of right hip Chronic right hip pain Obesity (BMI 30-39.9) Chronic alcoholism in remission Obstruction of fallopian tube
--- NOTE | 2024-10-23 10:56 | ED_ITS ---
HPI - General Adult General Chief complaint: Psychiatric Symptoms Stated complaint: Does not feel safe, crisis Time Seen by Provider: 10/23/24 10:54 Source: patient Mode of arrival: ambulatory Limitations: no limitations History of Present Illness ED Provider: Vanessa Hawkins PA-C HPI narrative: Patient is a 38 year old assigned female at with a history of depression anxiety presenting to the emergency department today with suicidal ideation. Patient states that she has been feeling suicidal and the urge to drive off a bridge. Patient denies any dizziness, lightheadedness, abdominal pain, nausea, vomiting, fever, chills, blurry vision, double vision, loss of vision, chest pain, difficulty breathing, shortness of breath, back pain, night sweats, pain with urination, increased urinary frequency, increased urinary urgency, blood in her urine or stool, syncope or a near syncopal episode, recent trauma or falls, bowel incontinence, bladder incontinence, or any other complaints at this time. Relieving factors: none Exacerbating factors: none Associated symptoms: denies other symptoms Treatments prior to arrival: none Related Data Home Medications ?Medication ?Instructions ?Recorded ?Confirmed ondansetron 4 mg disintegrating 4 mg PO Q8H PRN Nausea 12/08/23 10/23/24 tablet ropinirole 0.25 mg tablet 0.25 - 1 mg PO BEDTIME 10/24/24 10/24/24 Previous Rx's ?Medication ?Instructions ?Recorded celecoxib 200 mg capsule (Celebrex) 200 mg PO BID #60 caps 07/02/24 duloxetine 30 mg capsule,delayed 30 mg PO DAILY #90 caps 09/06/24 release lorazepam 0.5 mg tablet 0.5 mg PO DAILY PRN anxiety #10 09/06/24 tabs risperidone 0.25 mg tablet 0.25 mg PO DAILY #90 tabs 09/11/24 risperidone 0.5 mg tablet 0.5 mg PO BEDTIME #90 tabs 09/27/24 Allergies Allergy/AdvReac Type Severity Reaction Status Date / Time No Known Allergies Allergy Verified 10/23/24 09:42 Review of Systems 2 Constitutional: Constitutional: Reports no additional constitutional complaints, Denies chills, Denies fever(s) and Denies night sweats Eyes: Eyes: Reports no additional eye complaints, Denies blurry vision, Denies change in vision, Denies diplopia, Denies eye discharge, Denies loss of vision and Denies eye pain ENT: Denies dizziness Cardiovascular: Cardiovascular: Reports no additional cardiovascular complaints, Denies chest pain, Denies lightheadedness, Denies Loss of Consciousness and Denies dyspnea Respiratory: Respiratory: Reports no additional respiratory complaints and Denies dyspnea Gastrointestinal: Gastrointestinal: Reports no additional gastrointestinal complaints, Denies abdominal pain, Denies melena, Denies hematochezia, Denies change in bowel habits and Denies change in stool character Genitourinary: Genitourinary: Denies hematuria, Denies urinary frequency, Denies dysuria, Denies urinary incontinence, Denies urinary hesitancy and Denies urinary urgency Musculoskeletal: Musculoskeletal: Reports no additional musculoskeletal complaints, Denies numbness and Denies tingling Neurologic: Denies dizziness, Denies loss of vision, Denies numbness and Denies tingling Psychiatric: Psychiatric: Reports no additional psychiatric complaints, Denies homicidal ideation and Reports suicidal ideation Endocrine: Endocrine: Reports no additional endocrine complaints Hematologic/Lymphatic: Hematologic/Lymphatic: Reports no additional hematologic/lymphatic complaints Allergic/Immunologic: Allergic/Immunologic: Reports no additional allergic/immunologic complaints PMFSH Past Medical History Attestation statement: The following information was validated with the patient. Source: old records reviewed and nursing notes reviewed Medical History Acquired deformity of toenail Depression with anxiety At risk for abuse of opiates Marijuana abuse Cocaine abuse Substance use disorder Alcoholism Restless legs syndrome (RLS) Anxiety and depression Recurrent cold sores Labral tear of right hip joint Excessive daytime sleepiness Loud snoring Frequent nocturnal awakening Difficulty sleeping Cough, persistent Osteoarthritis of right hip Chronic right hip pain Obesity (BMI 30-39.9) Chronic alcoholism in remission Obstruction of fallopian tube Surgical History H/O unilateral salpingectomy History of surgery Family History Family History Father Medical history non-contributory Mother Medical history non-contributory Maternal Uncle OCD (obsessive compulsive disorder) Mental health disorder Brother Medical history non-contributory Maternal Grandfather Substance use disorder Paternal Grandfather Substance use disorder Social History Social History Housing: House Alcohol intake: former Patient Tobacco Use Status: Never used Tobacco e-Cigarette/Vaping Use: Never Used Use of substances other than those prescribed or required for medical reasons: No Advance Directives: No Advance Directives Information Provided: Yes Nutrition Risks: No Nutritional Risk service: No Current occupational status: employed 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 - [employer] Cognitive needs: No Hearing needs: No Vision needs: Yes Physical Exam ED Vital Signs: Vital Signs - 24 hr 10/23/24 21:10 10/24/24 10:20 Temperature 98.7 F 98.2 F Pulse Rate 94 92 Respiratory Rate 20 16 Blood Pressure 127/75 131/73 Pulse Oximetry 97 98 Oxygen Delivery Method Room Air Room Air BMI result Body Mass Index 36.9 Const General: cooperative, no acute distress, alert and awake Nutritional Appearance: well nourished Orientation/consciousness: patient oriented x3 HENMT Head: Yes normal to inspection and Yes atraumatic Ears: hearing grossly normal bilaterally and external ears normal General nose exam: Normal external nose present, no nasal discharge noted and no epistaxis Face and sinus: Yes normal facial exam, No abrasion and No laceration Mouth: Normal oral and palatal mucosa present, no drooling and no muffled voice Eyes General: appearance normal, both eyes and all related structures Periorbital: periorbital findings normal Eyelids: Yes eyelids normal Conjunctivae: conjunctivae normal Pupils: Equal, round and reactive pupils present EOM: EOMs intact bilaterally Neck Neck: Yes normal visual inspection, Yes full ROM and Yes no lymphadenopathy Resp Effort & Inspection: normal respiratory effort and able to speak in complete sentences Neuro General: patient oriented x3, moves all extremities and CN's II-XI intact bilaterally Cranial nerves: Yes Equal, round and reactive pupils present Cognition (Neuro): normal cognition Extrem General: Yes normal to inspection, Yes full ROM and Yes capillary refill normal Psych Appearance: grossly normal Mental Status: mental status grossly normal Affect: Sad affect present Attitude: cooperative Thought content: Suicidality present Course Course Course Narrative: Time: 11:57 Date: 10/24/24 Provider: Ladan Fagan DO Physician observation ended at 1157. Patient to be admitted as inpatient to psychiatry. Medications Administered Generic Name Dose Route Start Last Admin Trade Name Freq PRN Reason Stop Dose Admin Celecoxib 200 mg 10/23/24 21:00 10/24/24 09:52 Celecoxib 200 Mg Capsule PO Not Given BID TAMMY Risperidone 0.5 mg 10/23/24 21:00 10/23/24 21:29 Risperidone 0.5 Mg Tablet PO 0.5 mg BEDTIME TAMMY Administration Ropinirole HCl 0.5 mg 10/23/24 21:00 10/23/24 21:30 Ropinirole Hcl 0.25 Mg Tablet PO 0.5 mg BEDTIME MRX1 TAMMY Administration Discontinued Medications Generic Name Dose Route Start Last Admin Trade Name Mali ORTIZ Reason Stop Dose Admin Duloxetine HCl 30 mg 10/23/24 20:30 10/24/24 09:53 Duloxetine Hcl 30 Mg Capsule.Dr PO Not Given DAILY TAMMY Ibuprofen 400 mg 10/23/24 20:14 10/23/24 20:55 Ibuprofen 400 Mg Tablet PO 10/23/24 20:15 400 mg ONCE ONE Administration Risperidone 0.25 mg 10/23/24 20:30 10/24/24 09:53 Risperidone 0.25 Mg Tablet PO Not Given DAILY TAMMY Medical Decision Making Medical Decision Making MDM Narrative: Patient is a 38 year old assigned female at with a history of depression anxiety presenting to the emergency department today with suicidal ideation. Patient's physical exam was as noted in the physical exam portion of this note. Patient's blood work was unremarkable. Patient's urine showed possible infection however, it is an unclean sample - will await culture before beginning treatment. Patient was evaluated by the CARE team who recommended inpatient level of psychiatric care. I explained my physical exam findings as well as all test results to the patient. I answered all questions asked by the patient. Patient verbalized agreement and understanding with this treatment plan and remaining in the department pending either admission here at [facility] for inpatient psychiatric care or transfer to an appropriate psychiatric facility. You were seen in our Emergency Department today for treatment of a behavioral health issue. It is important after your visit that you follow up with either your behavioral health provider or a primary care doctor within 7 days.? Time: 13:20 Date: 10/24/24 Provider: Colt Quijano DO Physician observation ended at ___1320__. Patient has been cleared for discharge by the CARE team. Patient to be admitted as inpatient to psychiatry./Patient to be placed at a rehab facility. Differential Diagnosis Differential Diagnoses: The differential diagnosis associated with the presentation includes SI Admission/Observation Consideration of admission/observation: Escalation of care including admission/observation considered Patient will remain in the department pending either psychiatric admission here at [facility] or transfer to an appropriate psychiatric facility. Consult Healthcare Provider Management of the patient was discussed with: Behavioral Health Provider (Spoke with the CARE team as noted in the MDM Rationale portion of this note. ) Lab Data [facility] Lab Attestation statement: I reviewed the patient's lab results. My interpretation of these results are in the MDM Rationale portion of this note. 10/23/24 11:02 10/23/24 11:00 Labs: Lab Results 10/23/24 10/23/24 10/23/24 Range/Units 10:58 11:00 11:02 WBC 9.1 (4.8-10.8) X10*3/uL RBC 4.56 (4.20-5.50) X10*6/uL Hgb 13.9 (12.0-16.0) g/dl Hct 40.8 (37.0-47.0) % MCV 89.5 (80.0-98.0) fL MCH 30.5 (27.0-33.0) pg MCHC 34.1 (31.0-35.0) g/dl RDW 12.5 (11.0-16.0) % Plt Count 281 (160-400) X10*3/uL MPV 10.0 (9.4-12.3) fL Immature Gran % (Auto) 0.4 (0.0-0.4) % Neut % (Auto) 77.5 H (45-73) % Lymph % (Auto) 15.6 L (20-40) % [place] % (Auto) 5.4 (2-11) % Eos % (Auto) 0.7 (0-4) % Baso % (Auto) 0.4 (0-2) % Lymph # (Auto) 1.4 (1.2-4.9) X10*3/uL [place] # (Auto) 0.5 (0.1-1.2) X10*3/uL Eos # (Auto) 0.1 (0.0-0.4) X10*3/uL Baso # (Auto) 0.0 (0.0-0.2) X10*3/uL Abs Immat Gran (auto) 0.04 H (0.00-0.03) X10*3/uL Absolute Neuts (auto) 7.0 (2.0-8.3) x10*3/uL Absolute Nucleated RBC 0.000 (0.0-0.012) X10*3/uL Nucleated RBC % (auto) 0.0 (0.0-0.2) /100WBC Sodium 138 (135-145) mmol/L Potassium 3.6 (3.3-5.1) mmol/L Chloride 105 (96-108) mmol/L Carbon Dioxide 24 (22-29) mmol/L Anion Gap 13 (12-20) BUN 11 (9-16) mg/dL Creatinine 0.80 (0.5-1.4) mg/dL Estim Creat Clear Calc 106.9 Estimated GFR > 60 Random Glucose 93 (60-115) mg/dL Calcium 9.3 (8.4-10.2) mg/dL Urine Color Dark Yellow Urine Appearance Cloudy Urine pH 5.0 (5.0-9.0) Ur Specific [place] >= 1.030 H (1.005-1.025) Urine Protein Negative (Neg-Trace) mg/dL Urine Glucose (UA) Negative (Negative) mg/dL Urine Ketones 80 (Negative) mg/dL Urine Blood Negative (Negative) Urine Nitrite Negative (Negative) Ur Leukocyte Esterase Small (1+) H (Negative) Urine RBC 0-2 (0-2) /HPF Urine WBC 0-5 (0-5) /HPF Ur Squamous Epith Cells 11-20 (0-2) /HPF Urine Bacteria 4+ (None Seen) Hyaline Casts 3-5 (0-2) /LPF Urine Test NEGATIVE (NEGATIVE) Urine Opiates Screen Not Detected (Not Detect) Ur Buprenorphine Scrn Not Detected (Not Detect) ng/mL Ur Oxycodone Screen Not Detected (Not Detect) ng/mL Urine Methadone Screen Not Detected (Not Detect) ng/mL Urine Fentanyl Screen Not Detected (Not Detect) Ur Barbiturates Screen Not Detected (Not Detect) Ur Phencyclidine Scrn Not Detected (Not Detect) Ur Amphetamines Screen Not Detected (Not Detect) U Benzodiazepines Scrn Not Detected (Not Detect) Urine Cocaine Screen Not Detected (Not Detect) U Marijuana (THC) Screen Not Detected (Not Detect) Ethyl Alcohol < 10 mg/dL Critical Care Time Critical Care Time Critical Care Time: Yes Total Critical Care Time: 32 Attestation: I spent 32 minutes of Critical Care Time with this patient. This does not include time spent on separately reported billable procedures. Discharge Plan Discharge Clinical Impression: Suicidal ideation Patient Disposition: Admitted As Inpatient Interventions: [place]-Suicide Risk Severity Scale Last Done: 10/24/24 11:39 Admission Worksheet (ED) Last Done: 10/24/24 12:35
[2024-10-23 11:09] LABS: MANUAL DIFF FLAG NO
[2024-10-23 11:11] LABS: Basophils Percent Auto 0.4 % (0-2); Eosinophils Absolute Auto 0.1 X10*3/uL (0.0-0.4); Eosinophils Percent Auto 0.7 % (0-4); Hematocrit 40.8 % (37.0-47.0); Hemoglobin 13.9 g/dl (12.0-16.0); Imm Gran Abs Auto 0.04 X10*3/uL (0.00-0.03); Imm Gran Pct Auto 0.4 % (0.0-0.4); Lymphocytes Absolute Auto 1.4 X10*3/uL (1.2-4.9); Lymphocytes Percent Auto 15.6 % (20-40); Mean Corpuscular HGB Conc 34.1 g/dl (31.0-35.0); Mean Corpuscular Hemoglobin 30.5 pg (27.0-33.0); Mean Corpuscular Volume 89.5 fL (80.0-98.0); Monocytes Absolute Auto 0.5 X10*3/uL (0.1-1.2); Monocytes Percent Auto 5.4 % (2-11); Neutrophils Percent Auto 77.5 % (45-73); Platelet Count 281 X10*3/uL (160-400); Red Blood Count 4.56 X10*6/uL (4.20-5.50); Red Cell Distribution Width 12.5 % (11.0-16.0); White Blood Count 9.1 X10*3/uL (4.8-10.8)
[2024-10-23 11:14] LABS: Appearance Urine Cloudy; Color Urine Dark Yellow; Glucose Urine UA Negative (Negative); Leukocyte Esterase Urine Small (1+) (Negative); Nitrite Urine Negative (Negative); Specific Gravity - Urine >= 1.030 (1.005-1.025); UMIC TRIGGER UACC YES; Urine Blood Negative (Negative); Urine Ketones 80 mg/dL (Negative); Urine Protein Negative (Neg-Trace)
[2024-10-23 11:18] LABS: UPreg QC Valid YES; Urine Pregnancy NEGATIVE (NEGATIVE)
[2024-10-23 11:21] LABS: Amphetamine Screen Urine Not Detected (Not Detect); Barbiturates, Urine Not Detected (Not Detect); Benzodiazepines Screen Urine Not Detected (Not Detect); Buprenorphine Scr Not Detected (Not Detect); Cannabinoid Screen Urine Not Detected (Not Detect); Cocaine Screen Urine Not Detected (Not Detect); Fentanyl, urine Not Detected (Not Detect); Methadone Screen, Urine Not Detected (Not Detect); Opiate Screen Urine Not Detected (Not Detect); Oxycodone Screen Urine Not Detected (Not Detect); Phencyclidine Screen Urine Not Detected (Not Detect)
[2024-10-23 11:27] LABS: Anion Gap 13 (12-20); Blood Urea Nitrogen 11 mg/dL (9-16); Calcium 9.3 mg/dL (8.4-10.2); Carbon Dioxide 24 mmol/L (22-29); Chloride 105 mmol/L (96-108); Creatinine Clr Calc Pharmacy 106.9; Estimated Glomerular Filt Rate > 60; Ethanol < 10 mg/dL; Glucose Random 93 mg/dL (60-115); Potassium 3.6 mmol/L (3.3-5.1); Sodium 138 mmol/L (135-145)
[2024-10-23 11:28] LABS: Bacteria Urine 4+ (None Seen); RBC Urine 0-2 /HPF (0-2); UACC Culture Trigger YES; WBC Urine 0-5 /HPF (0-5)
--- NOTE | 2024-10-23 12:04 | MHC.EDTECH ---
Security Rossy dropped off items brought in by family. Misc snacks, coloring books markers/coloring pencils, paperback and journal. This tech and Abdirahman supply chain systems manager itemized patient belongings. Sealed snacks and reading book given to patient all other material in locker with the rest of patient belongings.
--- OUTSIDE RECORDS SUMMARY | 2024-10-23 12:54 | XMS_ITS | Patient Health Record ---
Author Organization [facility] [address] Address [address] [place] [address] Care Team Providers Care Glassblower Name Role Phone RIVAS MCCLOUD Unavailable [phone] Reason For Referral No Information Plan Of Treatment No Information
--- NOTE | 2024-10-23 19:15 | PC.NURSE ---
Report given to Ciara MULTANI. Patient will transition to M3
--- NOTE | 2024-10-23 19:15 | PC.NURSE ---
Patient personal medication sent to the pharmacy
--- NOTE | 2024-10-23 19:57 | PC.NURSE ---
keys given to mom per patients permission.
[2024-10-23] MEDS: Ibuprofen 400 MG TABLET PO (20:55)
--- NOTE | 2024-10-23 20:56 | PC.NURSE ---
pt requested to wait before taking night time meds. took ibuprofen as reported headache.
[2024-10-23 21:10] VITALS: BP 127/75; PULSE 94; RESP 20; TEMP 37.1; O2SAT 97
[2024-10-23] MEDS: DULoxetine HCl 30 MG CAPSULE.DR PO (21:29)
[2024-10-23] MEDS: risperiDONE 0.5 MG TABLET PO (21:29)
[2024-10-23] MEDS: rOPINIRole HCL 0.25 MG TABLET 0.5 MG PO (21:30)
--- NOTE | 2024-10-23 21:32 | PC.NURSE ---
pt states only takes 0.5mg ropinirole, refused other 0.5mg order. states takes 0.25mg risperidone as needed, took 0.5mg bedtime order per jul. pt refused celecoxib, states she only takes this as needed.
--- NOTE | 2024-10-24 08:05 | PC.NURSE ---
Assumed care of patient at 0645, patient appears to be sleeping this am, respirations even and unlabored, no apparent distress noted. Continue plan of care for IPLOC
--- NOTE | 2024-10-24 09:53 | PC.NURSE ---
pt reports that she takes all of her medications at bedtime, no medications in the morning
--- NOTE | 2024-10-24 10:11 | PHA.MEDREC ---
Addendum entered by Jesus Parada PharmD 10/24/24 10:13: reviewed Original Note: Pharmacy Consult ? Medication Reconciliation Pharmacy has reviewed the medication reconciliation done by nursing. Claims match med list.
[2024-10-24 10:20] VITALS: BP 131/73; PULSE 92; RESP 16; TEMP 36.8; O2SAT 98
[2024-10-24 18:00] VITALS: BP 125/65; PULSE 90; RESP 16; O2SAT 97
[2024-10-24 18:01] VITALS: BMI 36.7
--- NOTE | 2024-10-24 18:40 | PC.ADMIT ---
Kami is a 38 y/o male that was admitted to at 1343 from [facility] on [facility] for treatment of unspecified depressive d/o.? Pt leaves at home by self.? Precipitant of admission include increased depression and hopelessness. Pt reported SI with a plan to drive off a bridge. Pt had thoughts to write a suicide note. Recent stressor with partner ?I acted out in a manner that was way outside of my character and we broke up. I also have a lot of deaths in my past that I have yet to deal with.? Pt reported that she could come to staff to talk.? A&Ox4. Pt was calm and cooperative with the admission process.? Mood is depressed, affect is congruent.? Pt denied AVH.? The thought process is linear and organized.? Denied HI.? Pt reported being unable to stop crying and not sleep.? Pending court case for 11/06.? Pt reported poor sleep recently.? Pt has been clean from alcohol and all substances for 13 ? years.? Tox Screen was negative.? Medical Issues - hx labral tear R hip joint, hip osteoarthritis, RLS 1 IPOC 2015 at [facility].? Pt has hx of trauma, self injurious behaviors Pt was placed on 15 min checks for safety.? NKA
[2024-10-24 20:00] VITALS: BP 117/65; PULSE 78; RESP 16; TEMP 36.6; O2SAT 98
[2024-10-24] MEDS: DULoxetine HCl 30 MG CAPSULE.DR PO (21:35)
[2024-10-24] MEDS: risperiDONE 0.5 MG TABLET PO (21:36)
[2024-10-24] MEDS: rOPINIRole HCL 0.25 MG TABLET 0.5 MG PO ×2 (21:37→21:49)
[2024-10-25] MEDS: traZODone HCL 50 MG TABLET PO (00:39)
[2024-10-25 07:52] VITALS: BP 139/60; PULSE 92; RESP 16; TEMP 36.8; O2SAT 96
[2024-10-25 11:31] VITALS: BMI 37.2
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
[2024-10-25 19:48] VITALS: BP 122/58; PULSE 80; RESP 18; TEMP 36.8; O2SAT 96
[2024-10-25] MEDS: Melatonin 3 MG TABLET 6 MG PO (23:05)
[2024-10-25] MEDS: risperiDONE 0.5 MG TABLET PO (23:05)
[2024-10-25] MEDS: DULoxetine HCl 60 MG CAPSULE.DR PO (23:05)
[2024-10-25] MEDS: rOPINIRole HCL 0.25 MG TABLET 0.5 MG PO (23:05)
[2024-10-26 08:00] VITALS: BP 99/53; PULSE 67; RESP 17; TEMP 36.9; O2SAT 96
--- NOTE | 2024-10-26 10:32 | HO.PSYCHPN ---
Subjective Subjective Date of Service: 10/26/24 Reason For Visit: SI Subjective Notes: Conditional Voluntary Interim History: Active on unit. keeping to self. Patient reports feeling okay today; low anxiety but continues depressed. denies side effects from increase in Cymbalta. denies SI/HI/VH/AH. Pt reports feeling better after talking to my friends on the phone . per nursing, slept 8 hours last night. Continue current tx plan. Medication Compliance: Yes Side effects from medications: No Mental Status Exam Mental Status Exam Narrative: Pt is alert and oriented; behavior is cooperative and calm; dressed in casual attire; mood is described as depressed ; eye contact appropriate; Speech is normal rate, volume and not pressured; thought process is organized; Thought content is on tx; denies SI/HI/VH/AH. Diagnostics Vital Signs (24Hr): Vital Signs - 24 hr 10/25/24 19:48 10/26/24 08:00 Temperature 98.2 F 98.4 F Pulse Rate 80 67 Respiratory Rate 18 17 Blood Pressure 122/58 L 99/53 L Pulse Oximetry 96 96 Oxygen Delivery Method Room Air Room Air BMI result Body Mass Index 37.2 Labs 10/23/24 11:02 10/23/24 11:00 Medications Medications Current Medications Acetaminophen (Acetaminophen 325 Mg Tablet) 650 mg PO Q6H PRN PRN Reason: Headache/Pain, Scale 1-10 Al Hydroxide/Mg Hydroxide (Magnesium Hydrox/Alum Hydrox 30 Ml Oral.Susp) 30 ml PO Q6H PRN PRN Reason: Heartburn/Nausea Celecoxib (Celecoxib 200 Mg Capsule) 200 mg PO BID PRN PRN Reason: Hip Pain Duloxetine HCl (Duloxetine Hcl 60 Mg Capsule.) 60 mg PO BEDTIME TAMMY Last Admin: 10/25/24 23:05 Dose: 60 mg Hydroxyzine HCl (Hydroxyzine Hcl 25 Mg Tablet) 25 mg PO Q6H PRN PRN Reason: mild anxiety Lorazepam (Lorazepam 0.5 Mg Tablet) 0.5 mg PO DAILY PRN PRN Reason: anxiety Magnesium Hydroxide (Milk Of Magnesia 30 Ml Oral.Susp) 30 ml PO DAILY PRN PRN Reason: Constipation Melatonin (Melatonin 3 Mg Tablet) 6 mg PO BEDTIME PRN PRN Reason: Insomnia Last Admin: 10/25/24 23:05 Dose: 6 mg Multi-Ingred Cream/Lotion/Oil/Oint (Mineral Oil/Petrolatum,White 106 Gm Tube) 1 appl TOPICAL DAILY PRN; Protocol PRN Reason: Dry Skin Nicotine Polacrilex (Nicotine Polacrilex 2 Mg Gum) 4 mg BUCCAL Q2H PRN PRN Reason: Nicotine Cravings Ondansetron HCl (Ondansetron Odt 4 Mg Tab.Rapdis) 4 mg TRANSLINGU Q8H PRN PRN Reason: Nausea Risperidone (Risperidone 0.5 Mg Tablet) 0.5 mg PO BEDTIME TAMMY Last Admin: 10/25/24 23:05 Dose: 0.5 mg Ropinirole HCl (Ropinirole Hcl 0.25 Mg Tablet) 0.5 mg PO BEDTIME MRX1 TAMMY Last Admin: 10/26/24 00:58 Dose: Not Given Trazodone HCl (Trazodone Hcl 50 Mg Tablet) 50 mg PO BEDTIME MRX1 PRN PRN Reason: Insomnia Last Admin: 10/25/24 00:39 Dose: 50 mg Allergies Allergies Allergy/AdvReac Type Severity Reaction Status Date / Time No Known Allergies Allergy Verified 10/23/24 09:42 Assessment & Plan Assessment & Plan (1) MDD (major depressive disorder), recurrent episode: Status: Acute Code(s): F33.9 - Major depressive disorder, recurrent, unspecified (2) PTSD (post-traumatic stress disorder): Status: Acute Code(s): F43.10 - Post-traumatic stress disorder, unspecified (3) Cocaine abuse in remission: Status: Acute Code(s): F14.11 - Cocaine abuse, in remission (4) Alcohol use disorder in remission: Status: Acute Code(s): F10.91 - Alcohol use, unspecified, in remission Plan Patient is a 38-year-old female with history of MDD, PTSD, cocaine use disorder and alcohol use disorder who self presented to ER due to suicidal ideation with a plan to drive off a bridge secondary to increased depression. Plan: CV 15 minute safety checks Obtain collateral Continue home medications Increase: cymbalta to 60mg PO bedtime Start: melatonin 6mg PO bedtime Encourage groups Discharge planning 10/26: Active on unit. keeping to self. Patient reports feeling okay today; low anxiety but continues depressed. denies side effects from increase in Cymbalta. denies SI/HI/VH/AH. Pt reports feeling better after talking to my friends on the phone . per nursing, slept 8 hours last night. Continue current tx plan. Patient educated on: diagnosis, medication risk/benefits and therapeutic strategies Reason for continued inpatient stay Substantial Risk for: med/psych decompensation Time Spent With Patient Time: Total time managing care of this patient today _20___ minutes.
[2024-10-26 19:40] VITALS: BP 110/55; PULSE 80; RESP 16; TEMP 36.8; O2SAT 98
[2024-10-26] MEDS: rOPINIRole HCL 0.25 MG TABLET 0.5 MG PO (22:12)
[2024-10-26] MEDS: risperiDONE 0.5 MG TABLET PO (22:12)
[2024-10-26] MEDS: DULoxetine HCl 60 MG CAPSULE.DR PO (22:12)
[2024-10-26] MEDS: Melatonin 3 MG TABLET 6 MG PO (22:14)
[2024-10-27 08:00] VITALS: BP 115/62; PULSE 84; RESP 16; TEMP 36.7; O2SAT 98
[2024-10-27 10:00] VITALS: BP 136/72; PULSE 97; RESP 16; TEMP 36.4; O2SAT 97
[2024-10-27] MEDS: Celecoxib 200 MG CAPSULE PO (16:02)
--- NOTE | 2024-10-27 16:48 | P.PNPSI_ITS ---
Subjective Subjective Date of Service: 10/27/24 Reason For Visit: SI Interim History: feeling tired/ getting all meds at HS. not sure if it's bcse of poor sleep due to roommate or due to med changes. will plan to proactively sleep in ante-room tonight. per staff, depression/PTSD. sleeping a lot. slept in ante-room last night. slept better there, roommate is manic and up and disruptive in the night. slept 6 hours. Mental Status Exam Mental Status Exam Narrative: Pt is alert and oriented; behavior is cooperative and calm; dressed in casual attire; mood is described as depressed ; eye contact appropriate; Speech is normal rate, volume and not pressured; thought process is organized; Thought content is on tx; no SI/HI/VH/AH expressed. Diagnostics Vital Signs (24Hr): Vital Signs - 24 hr 10/26/24 19:40 10/27/24 08:00 Temperature 98.3 F 98.0 F Pulse Rate 80 84 Respiratory Rate 16 16 Blood Pressure 110/55 L 115/62 Pulse Oximetry 98 98 Oxygen Delivery Method Room Air Room Air BMI result Body Mass Index 37.2 Labs 10/23/24 11:02 10/23/24 11:00 Medications Medications Current Medications Acetaminophen (Acetaminophen 325 Mg Tablet) 650 mg PO Q6H PRN PRN Reason: Headache/Pain, Scale 1-10 Al Hydroxide/Mg Hydroxide (Magnesium Hydrox/Alum Hydrox 30 Ml Oral.Susp) 30 ml PO Q6H PRN PRN Reason: Heartburn/Nausea Celecoxib (Celecoxib 200 Mg Capsule) 200 mg PO BID PRN PRN Reason: Hip Pain Last Admin: 10/27/24 16:02 Dose: 200 mg Duloxetine HCl (Duloxetine Hcl 60 Mg Capsule.Dr) 60 mg PO BEDTIME TAMMY Last Admin: 10/26/24 22:12 Dose: 60 mg Hydroxyzine HCl (Hydroxyzine Hcl 25 Mg Tablet) 25 mg PO Q6H PRN PRN Reason: mild anxiety Lorazepam (Lorazepam 0.5 Mg Tablet) 0.5 mg PO DAILY PRN PRN Reason: anxiety Magnesium Hydroxide (Milk Of Magnesia 30 Ml Oral.Susp) 30 ml PO DAILY PRN PRN Reason: Constipation Melatonin (Melatonin 3 Mg Tablet) 6 mg PO BEDTIME PRN PRN Reason: Insomnia Last Admin: 10/26/24 22:14 Dose: 6 mg Multi-Ingred Cream/Lotion/Oil/Oint (Mineral Oil/Petrolatum,White 106 Gm Tube) 1 appl TOPICAL DAILY PRN; Protocol PRN Reason: Dry Skin Nicotine Polacrilex (Nicotine Polacrilex 2 Mg Gum) 4 mg BUCCAL Q2H PRN PRN Reason: Nicotine Cravings Ondansetron HCl (Ondansetron Odt 4 Mg Tab.Rapdis) 4 mg TRANSLINGU Q8H PRN PRN Reason: Nausea Risperidone (Risperidone 0.5 Mg Tablet) 0.5 mg PO BEDTIME TAMMY Last Admin: 10/26/24 22:12 Dose: 0.5 mg Ropinirole HCl (Ropinirole Hcl 0.25 Mg Tablet) 0.5 mg PO BEDTIME MRX1 TAMMY Last Admin: 10/26/24 23:27 Dose: Not Given Trazodone HCl (Trazodone Hcl 50 Mg Tablet) 50 mg PO BEDTIME MRX1 PRN PRN Reason: Insomnia Last Admin: 10/25/24 00:39 Dose: 50 mg Allergies Allergies Allergy/AdvReac Type Severity Reaction Status Date / Time No Known Allergies Allergy Verified 10/23/24 09:42 Assessment & Plan Assessment & Plan (1) MDD (major depressive disorder), recurrent episode: Status: Acute Code(s): F33.9 - Major depressive disorder, recurrent, unspecified (2) PTSD (post-traumatic stress disorder): Status: Acute Code(s): F43.10 - Post-traumatic stress disorder, unspecified (3) Cocaine abuse in remission: Status: Acute Code(s): F14.11 - Cocaine abuse, in remission (4) Alcohol use disorder in remission: Status: Acute Code(s): F10.91 - Alcohol use, unspecified, in remission Plan Patient is a 38-year-old female with history of MDD, PTSD, cocaine use disorder and alcohol use disorder who self presented to ER due to suicidal ideation with a plan to drive off a bridge secondary to increased depression. Plan: CV 15 minute safety checks Obtain collateral Continue home medications Increase: cymbalta to 60mg PO bedtime Start: melatonin 6mg PO bedtime Encourage groups Discharge planning 10/26: Active on unit. keeping to self. Patient reports feeling okay today; low anxiety but continues depressed. denies side effects from increase in Cymbalta. denies SI/HI/VH/AH. Pt reports feeling better after talking to my friends on the phone . per nursing, slept 8 hours last night. Continue current tx plan. 10/27: feeling tired. will continue current medications and pt to sleep in ante- room due to manic roommate to determine if tiredness is a medication effect versus lack of sleep. Reason for continued inpatient stay Substantial Risk for: harm to self and inability to function Time Spent With Patient Time: Total time managing care of this patient today ____ minutes.
[2024-10-27 19:55] VITALS: BP 120/64; PULSE 76; RESP 16; TEMP 36.9; O2SAT 97
[2024-10-27] MEDS: rOPINIRole HCL 0.25 MG TABLET 0.5 MG PO (21:53)
[2024-10-27] MEDS: risperiDONE 0.5 MG TABLET PO (21:53)
[2024-10-27] MEDS: DULoxetine HCl 60 MG CAPSULE.DR PO (21:53)
[2024-10-27] MEDS: Melatonin 3 MG TABLET 6 MG PO (21:55)
[2024-10-28 08:00] VITALS: BP 136/72; PULSE 97; RESP 16; TEMP 36.4; O2SAT 97
[2024-10-28] MEDS: LORazepam 0.5 MG TABLET PO (11:02)
--- NOTE | 2024-10-28 15:54 | P.PNPSI_ITS ---
Subjective Subjective Date of Service: 10/28/24 Reason For Visit: SI Interim History: slept better last night. sponsor visited today. energy improved. interested in PHP. per staff, feeling down. discharging tuesday. slept 8 hours. brighter. taking meds. slept in sensory room due to disruptive roommate. Mental Status Exam Mental Status Exam Narrative: Pt is alert and oriented; behavior is cooperative and calm; dressed in casual attire; mood is not assessed. eye contact appropriate; Speech is normal rate, volume and not pressured; thought process is organized; Thought content is on tx; no SI/HI/VH/AH expressed. Diagnostics Vital Signs (24Hr): Vital Signs - 24 hr 10/27/24 19:55 10/28/24 08:00 Temperature 98.5 F 97.6 F Pulse Rate 76 97 Respiratory Rate 16 16 Blood Pressure 120/64 136/72 Pulse Oximetry 97 97 Oxygen Delivery Method Room Air Room Air BMI result Body Mass Index 37.2 Labs 10/23/24 11:02 10/23/24 11:00 Medications Medications Current Medications Acetaminophen (Acetaminophen 325 Mg Tablet) 650 mg PO Q6H PRN PRN Reason: Headache/Pain, Scale 1-10 Al Hydroxide/Mg Hydroxide (Magnesium Hydrox/Alum Hydrox 30 Ml Oral.Susp) 30 ml PO Q6H PRN PRN Reason: Heartburn/Nausea Celecoxib (Celecoxib 200 Mg Capsule) 200 mg PO BID PRN PRN Reason: Hip Pain Last Admin: 10/27/24 16:02 Dose: 200 mg Duloxetine HCl (Duloxetine Hcl 60 Mg Capsule.Dr) 60 mg PO BEDTIME TAMMY Last Admin: 10/27/24 21:53 Dose: 60 mg Hydroxyzine HCl (Hydroxyzine Hcl 25 Mg Tablet) 25 mg PO Q6H PRN PRN Reason: mild anxiety Lorazepam (Lorazepam 0.5 Mg Tablet) 0.5 mg PO DAILY PRN PRN Reason: anxiety Last Admin: 10/28/24 11:02 Dose: 0.5 mg Magnesium Hydroxide (Milk Of Magnesia 30 Ml Oral.Susp) 30 ml PO DAILY PRN PRN Reason: Constipation Melatonin (Melatonin 3 Mg Tablet) 6 mg PO BEDTIME PRN PRN Reason: Insomnia Last Admin: 10/27/24 21:55 Dose: 6 mg Multi-Ingred Cream/Lotion/Oil/Oint (Mineral Oil/Petrolatum,White 106 Gm Tube) 1 appl TOPICAL DAILY PRN; Protocol PRN Reason: Dry Skin Nicotine Polacrilex (Nicotine Polacrilex 2 Mg Gum) 4 mg BUCCAL Q2H PRN PRN Reason: Nicotine Cravings Ondansetron HCl (Ondansetron Odt 4 Mg Tab.Rapdis) 4 mg TRANSLINGU Q8H PRN PRN Reason: Nausea Risperidone (Risperidone 0.5 Mg Tablet) 0.5 mg PO BEDTIME TAMMY Last Admin: 10/27/24 21:53 Dose: 0.5 mg Ropinirole HCl (Ropinirole Hcl 0.25 Mg Tablet) 0.5 mg PO BEDTIME MRX1 TAMMY Last Admin: 10/27/24 23:11 Dose: Not Given Trazodone HCl (Trazodone Hcl 50 Mg Tablet) 50 mg PO BEDTIME MRX1 PRN PRN Reason: Insomnia Last Admin: 10/25/24 00:39 Dose: 50 mg Allergies Allergies Allergy/AdvReac Type Severity Reaction Status Date / Time No Known Allergies Allergy Verified 10/23/24 09:42 Assessment & Plan Assessment & Plan (1) MDD (major depressive disorder), recurrent episode: Status: Acute Code(s): F33.9 - Major depressive disorder, recurrent, unspecified (2) PTSD (post-traumatic stress disorder): Status: Acute Code(s): F43.10 - Post-traumatic stress disorder, unspecified (3) Cocaine abuse in remission: Status: Acute Code(s): F14.11 - Cocaine abuse, in remission (4) Alcohol use disorder in remission: Status: Acute Code(s): F10.91 - Alcohol use, unspecified, in remission Plan Patient is a 38-year-old female with history of MDD, PTSD, cocaine use disorder and alcohol use disorder who self presented to ER due to suicidal ideation with a plan to drive off a bridge secondary to increased depression. Plan: CV 15 minute safety checks Obtain collateral Continue home medications Increase: cymbalta to 60mg PO bedtime Start: melatonin 6mg PO bedtime Encourage groups Discharge planning 10/26: Active on unit. keeping to self. Patient reports feeling okay today; low anxiety but continues depressed. denies side effects from increase in Cymbalta. denies SI/HI/VH/AH. Pt reports feeling better after talking to my friends on the phone . per nursing, slept 8 hours last night. Continue current tx plan. 10/27: feeling tired. will continue current medications and pt to sleep in ante- room due to manic roommate to determine if tiredness is a medication effect versus lack of sleep. 10/28: slept in sensory room last night, got a good sleep, not feeling tired today. will continue current mgmt. interested in PHP, planning to discharge tomorrow. Reason for continued inpatient stay Substantial Risk for: stable for discharge Time Spent With Patient Time: Total time managing care of this patient today ____ minutes.
[2024-10-28 20:00] VITALS: BP 119/59; PULSE 77; RESP 16; TEMP 36.6; O2SAT 98
[2024-10-28] MEDS: rOPINIRole HCL 0.25 MG TABLET 0.5 MG PO (22:03)
[2024-10-28] MEDS: DULoxetine HCl 60 MG CAPSULE.DR PO (22:04)
[2024-10-28] MEDS: risperiDONE 0.5 MG TABLET PO (22:04)
[2024-10-28] MEDS: Melatonin 3 MG TABLET 6 MG PO (22:05)
[2024-10-29 07:30] VITALS: BP 128/66; PULSE 91; RESP 14; TEMP 2.6; TEMP 36.6; O2SAT 97
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
[2024-10-29] MEDS: Naloxone HCl Nasal TAKE HOME 4 MG SPRAY 8 MG NOSTRILALT (10:59)
--- NOTE | 2024-10-29 11:25 | PC.NURSE ---
Patient easily engaged. Reports sadness continues although feels ready for discharge. Denies SI/HI at this time. Reports friend is going to pick her up and she will return to her home. Discharge paperwork reviewed with patient reports understanding. Appointments reviewed with patient, reports she has appt with therapist Tuesday, and has follow up with Faustina Carr scheduled. Will call PCP for follow up. Medications reviewed with patient, reports understanding. Narcan given as take home, instruction provided. All belongings taken with patient. Crisis numbers provided to patient with resource booklet.
== END 2024-10-29 11:02 | disposition home or self-care (01) | DRG 751 ==
LOC: HO.ED 10-24 11:30 → HO.PADLT16 10-24 11:32
PROVIDERS: Admitting Provider Registered Nurse; Emergency Provider Emergency Medicine Emergency Medical Services; PCP Internal Medicine; Responsible Provider Registered Nurse; Visit Provider Psychiatry & Neurology Psychiatry
DX: F33.9 Major depressive disorder, recurrent, unspecified (principal); F10.21 Alcohol dependence, in remission; F14.11 Cocaine abuse, in remission; F43.10 Post-traumatic stress disorder, unspecified; Z79.899 Other long term (current) drug therapy
CPT/HCPCS: 36415; 80048; 80307; 81001; 81025; 85025; 87086; 93005; 99285; S9485

== ENCOUNTER → 2024-10-23 19:28 | Outpatient (BNV) | payer OTHER, SELFPAY | PROVIDERS: Admitting Provider Registered Nurse; Emergency Provider Emergency Medicine Emergency Medical Services; PCP Internal Medicine; Responsible Provider Registered Nurse; Visit Provider Internal Medicine | DX: Z13.6 Encounter for screening for cardiovascular disorders (principal) | CPT/HCPCS: 93010 ==

== ENCOUNTER → 2024-10-24 11:32 | Outpatient (BNV) | payer OTHER, SELFPAY | PROVIDERS: Admitting Provider Registered Nurse; Emergency Provider Emergency Medicine Emergency Medical Services; PCP Internal Medicine; Responsible Provider Registered Nurse; Visit Provider Psychiatry & Neurology Psychiatry | DX: F33.2 Major depressive disorder, recurrent severe without psychotic features (principal); F14.11 Cocaine abuse, in remission; F43.11 Post-traumatic stress disorder, acute; F10.91 Alcohol use, unspecified, in remission | CPT/HCPCS: 90792; 99231; 99232; 99238 ==

== ENCOUNTER 2025-04-08 16:09 | Outpatient (REF) | payer OTHER, SELFPAY ==
--- OUTSIDE RECORDS SUMMARY | 2024-10-04 09:00 | XMS_ITS ---
Author Organization [facility] Address [address] [place] [address] Care Team Providers Care Tobacco Cloth Reclaimer Name Role Phone Saad HERNANDEZ, Najma Wilson Primary Care Provider Un available Leah Light Unavailable [phone] Nita Soliz Unavailable [phone] REASON FOR VISIT seen sooner Encounters Encounter Location Date Provider Diagnosis [address] [address] 10/04/2024 Nita Soliz Plan Of Treatment Next Appt Details Provider Name:Leah Light , 04/22/2025 03:45:00 PM, [address] [facility], [place], [address], Progress Notes * Karan BRIDGESOB:05/1985 (39 yo F)Acc No.[id number]:10/04/2024 Progress Notes Patient: Kami DURÁN Provider: Jil Soliz DPM :1985 A ge:38 Y S ex:Female Date:10/04/2024 Address:[address] [place] [address] [id number] Pcp:Urmila Simms Subjective: * Chief Complaints: * 1 . Seen sooner. * Medical History: Objective: * Vitals: Assessment: Plan: * Treatment: * Images: * The named appointment provid er may or may not be the originator of this progress note, and it is not deemed complete until electronically signed by the appointment provider. Sign off status: Pending * Provider: Jil Soliz DPM Date: 0 10/04/2024 Generated for Marline Woodard/Gilbert on: 06/09/2024 07:19 AM EST
--- OUTSIDE RECORDS SUMMARY | 2025-04-09 07:19 | XMS_ITS | Patient Health Record ---
Author Organization [facility] Address [address] [place] [address] Care Team Providers Care Tableau Administrator Name Role Phone RIVAS MCCLOUD Unavailable [phone] Reason For Referral No Information Plan Of Treatment No Information
--- OUTSIDE RECORDS SUMMARY | 2025-04-09 07:20 | XMS_ITS | Patient Health Record ---
Author Organization [facility] Address [address] [place] [address] Care Team Providers Care Grants Director Name Role Phone Saad HERNANDEZ, Najma Wilson Primary Care Provider Un available Black, Leah Unavailable [phone] PericaNichoen Unavailable [phone] Allergies No Known Allergies Reason For Referral No Information Medications Medication SIG (Take, Route, Fr equency, Duration) Notes Start Date End Date Status Celecoxib 200 MG 1 capsule as needed Orally Once a day Active Vitamin D3 Active risperiDONE 0.5 MG 1 tablet Orally Once a day Active Urea Nail 45 % 1 application as nee ded Externally Once a day 09/07/2024 Active Ciclopirox 0.77 % 1 application thin f ilm topically to nails Externally Once a day; Duration: 30 days Ac tive DULoxetine HCl 30 MG 1 capsule Orally Once a day Active rOPINIRole HCl Activ e Immunizations Vaccine Route Administration Date Status Comme nts Influenza Unknown 02/21/2024 Administered Social History Tobacco Use: Social History Observation Description Date Details (start date - stop date) Never Smoker NA - NA Tobacco Control (Standard) Question Answer Notes Tobacco use: Nonsmoker Additional Findings: Tobacco non-user Current no nsmoker Section Notes: Former drug/ alcoholic use i n recovery 10 years Former drug/ alcoholic use i n recovery 10 years Problems Problem Type SNOMED Code ICD Code Onset Dates Problem Status W/U Status Risk Notes Problem Onychomycosis (155715165) Onychomycosis (B35.1) Active confirmed Vital Signs Blood pressure diastolic 65 mm Hg 12/10/2024 Height 5ft 4in in 12/10/2024 Blood pressure systolic 128 mm Hg 12/10/2024 Weight 230 lbs 12/10/2024 BMI 39.48 kg/m2 12/10/2024 Encounters Encounter Location Date Provider Diagnosis [address] [address] 09/07/2024 Leah Light Onychomycosis B35.1 and [facility] [address] [place] [address] 12/10/2024 Leah Black Onychomycosis B35.1 and Pain in left toe(s) M79.675 [facility] [address] [place] [address] 08/09/2024 Nita Heydi [facility] [address] [place] [address] 09/07/2024 Leah Black Assessments Encounter Date Diagnosis (ICD Code) Assessment Notes Treatment Notes Treatment Clinical Notes Section Notes 09/07/2024 Pain in left toe(s) (ICD-10 - M79.675) 09/07/2024 Onychomycosis (ICD-10 - B35.1) 12/10/2024 Pain in left toe(s) (ICD-10 - M79.675) 12/10/2024 Onychomycosis (ICD-10 - B35.1) Plan Of Treatment Pending Test Test Name Order Date Nail Panel 09/07/2024 Next Appt Details Provider Name:Leah Light , 04/22/2025 03:45:00 PM, [address] [place], [address], Insurance Providers Payer Name Payer Address Payer Phone Subscriber Number Group Number Insured Name Patient Relationship to Insured Coverage Start Date Coverage End Date [facility] [address] [place] [address] [id number] Kami Montanez Self - patient is the insured 4 Medical (General) History Medical History History ICD Code Anemia Back,Hip,and Knee pain Depression Surgical History Surgery Date(Month/Year) reproductive sx 02/2021
--- OUTSIDE RECORDS SUMMARY | 2025-04-09 07:20 | XMS_ITS | Clinical Summary ---
Author Organization [employer] Address [address] [place] [address] Care Team Providers Care Care Attendant Name Role Phone Unavailable Primary Care Provider [...] Date Last Done Comments Depression Screening 1984 Disability Screening 1984 Alcohol/Substance Use Screening 1996 Tobacco Screening 1996 Family Planning (PISQ) 12/22/1999 Hepatitis B Vaccines (1 of 3 - 19+ 3-dose series) 12/22/2003 Pap Smear 2005 Cervical Cancer Screening 2014 HPV/Cotest 2014 Dental Prophylaxis 01/17/2019 07/19/2018, 05/26/2017 Dental Oral Exam 02/15/2019 08/14/2018, 05/26/2017, 07/07/2016 Dental X-Ray: Full Mouth 07/08/2019 07/07/2016 Dental X-Ray: Bitewings 08/16/2019 08/15/19 19, 07/07/2016 Mammogram 2024 COVID-19 Vaccine ( - 2024-2 6 season) 2025 Influenza Vaccine (#1) 2025 DTaP/Tdap/Td Vaccines (2 - T d or [...] patient's age to complete this topic Meningococcal B Vaccine Aged Out No l onger eligible based on patient's age to complete this topic Meningococcal Vaccine Aged Out No dinah carrol eligible based on patient's age to complete this topic Pneumococcal Vaccine: Pediatrics (0 to 5 Years) and At-Risk Patients (6 to 49) Years Aged Out No longer eligible b ased [...]
--- OUTSIDE RECORDS SUMMARY | 2025-04-09 07:20 | XMS_ITS | Encounter Summary ---
Author Organization [employer] [facility] Address [address] [facility] [address] [place] [address] Care Team Providers Care Chiropractor Assistant Name Role Phone Unavailable Primary Care Provider Unavailabl e Encounter Details Date Type Department Care Team (Latest Contact Info) Description 07/19/2018 Abstract [facility] CONVERSION[facility] Dental, Provider, DDS Social History [...]
--- OUTSIDE RECORDS SUMMARY | 2025-04-09 07:21 | XMS_ITS ---
Author Name [facility] Organization Unknown Care Team Organization Name Specialty Phone Email Start Date End Da te [facility] HORACIO RAMOS Primary Care 03/30/2022 01/09/20 24
[2025-04-09 10:56] LABS: Appearance Urine Turbid; Glucose Urine UA Negative (Negative); PH 5.0 (5.0-9.0); Specific Gravity - Urine >= 1.030 (1.005-1.025); UMIC TRIGGER UACC YES
[2025-04-09 11:30] LABS: UACC Culture Trigger YES
[2025-04-09 12:29] LABS: Bacterial Vaginosis PCR POSITIVE (Negative); Candida Group PCR NOT DETECTED (Not Detect); Candida glab krusei PCR NOT DETECTED (Not Detect); Trichomonas vaginalis PCR NOT DETECTED (Not Detect)
== END 2025-04-08 16:10 | disposition home or self-care (01) ==
LOC: HO.LAB 16:09
PROVIDERS: PCP Internal Medicine; Visit Provider Nurse Practitioner Family
DX: N76.0 Acute vaginitis (principal)
CPT/HCPCS: 81001; 81003; 81515; 87086

== ENCOUNTER 2025-04-08 16:09 | Outpatient (AMB) | payer OTHER, SELFPAY ==
[2025-04-08 16:13] VITALS: BP 118/68; PULSE 94; TEMP 36.7; O2SAT 98
--- NOTE | 2025-04-08 16:13 | MHC.OFFWIV ---
Intake Vital Signs 04/08/25 16:13 Height 5 ft 4 in BP 118/68 Blood Pressure Location Lt brachial Position Sitting Pulse 94 Pulse Source Pulse Oximeter Temp 98.0 F Temp Source Oral Pulse Oximetry (%) 98 Intake Visit Reasons: ep vaginal odor concerns Patient Tobacco Use Status: Never used Tobacco Allergies No Known Allergies Allergy (Verified 04/08/25 16:13) Medication List - Last Reconciled 04/08/25 by Cuca Car NP aripiprazole 2 mg PO DAILY celecoxib (Celebrex) 200 mg PO BID duloxetine 60 mg PO BEDTIME 30 days lorazepam 0.5 mg PO DAILY PRN metronidazole 500 mg PO BID 7 days ondansetron 4 mg PO Q8H PRN risperidone 0.5 mg PO BEDTIME ropinirole 0.25 - 1 mg (1 - 4 x 0.25 mg) PO BEDTIME 3 months Do you need a note to return to daycare/school/sports/work: No HPI HPI Comments History of Present Illness Details 39-year-old female presents to the walk-in clinic with vaginal foul odor for 2 weeks. Reports vaginal discharge with foul smell, along with urinary frequency and burning. Denies pelvic pain. She has not been sexually active for a few months; when active, partners are mostly women. Denies possibility of . Denies fevers, chills, nausea, vomiting, or bowel symptoms. [facility] Medical History (Updated 04/08/25 @ 16:43 by Cuca Car NP) Vaginitis and vulvovaginitis Suicidal ideation Acquired deformity of toenail Depression with anxiety At risk for abuse of opiates Marijuana abuse Cocaine abuse Substance use disorder Alcoholism Restless legs syndrome (RLS) Anxiety and depression Recurrent cold sores Labral tear of right hip joint Excessive daytime sleepiness Loud snoring Frequent nocturnal awakening Difficulty sleeping Cough, persistent Osteoarthritis of right hip Chronic right hip pain Obesity (BMI 30-39.9) Chronic alcoholism in remission Obstruction of fallopian tube Surgical History H/O unilateral salpingectomy History of surgery Family History Father Medical history non-contributory Mother Medical history non-contributory Maternal Uncle OCD (obsessive compulsive disorder) Mental health disorder Brother Medical history non-contributory Maternal Grandfather Substance use disorder Paternal Grandfather Substance use disorder Social History Household Members: None Housing: House Do you presently have visiting nurse or other home services: No Alcohol intake: former Patient Tobacco Use Status: Never used Tobacco e-Cigarette/Vaping Use: Never Used service: No Current occupational status: employed 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[employer] Sexual orientation: Bisexual Cognitive needs: No Hearing needs: No Vision needs: Yes Review of Systems Const All systems reviewed & are unremarkable except as noted in HPI and below Physical Exam Vital Signs: Last Vital Signs Temp 98.0 F 04/08/25 16:13 Pulse 94 04/08/25 16:13 BP 118/68 04/08/25 16:13 Pulse Ox 98 04/08/25 16:13 Const General: no acute distress Nutritional Appearance: obese Orientation/consciousness: patient oriented x3 GI Inspection: Yes Abdominal panniculus present Palpation (GI): Soft to palpation, not firm, nontender, no guarding, not rigid and No hepatosplenomegaly present Auscultation: normal bowel sounds Other: Vaginal with Foul smell and white discharge. General: Yes no CVA tenderness External Female Exam: erythema Speculum Exam - Vagina: normal vaginal discharge Speculum Exam - Cervix: Cervical os open and nontender Bimanual exam- vagina & uterus: No Cervical tenderness present OB/external & speculum: Cervical os open Back/Spine/Pelvis Back: no CVA tenderness Neuro General: patient oriented x3, gait normal and moves all extremities Psych Speech and movement: Normal speech and movement present Results AMB Urinalysis, Automated UA Leukoctes 70 Drew/uL Last Edit by Lencho Montoya CMA on 04/08/25 16:24 UA Nitrite Negative Last Edit by Lencho Montoya CMA on 04/08/25 16:24 UA Urobilinogen 0.2 mg/dL Last Edit by Lencho Montoya CMA on 04/08/25 16:24 UA Protein 0 mg/dL Last Edit by Lencho Montoya CMA on 04/08/25 16:24 UA pH 5.5 Last Edit by Lencho Montoya CMA on 04/08/25 16:24 UA Blood 0 Dallin/uL Last Edit by Lencho Montoya CMA on 04/08/25 16:24 UA Specific [place] 1.030 Last Edit by Lencho Montoya CMA on 04/08/25 16:24 UA Ketone Negative Last Edit by Lencho Montoya CMA on 04/08/25 16:24 UA Bilirubin 1 mg/dL Last Edit by Lencho Montoya CMA on 04/08/25 16:24 UA Glucose 0 mg/dL Last Edit by Lencho Montoya CMA on 04/08/25 16:24 Results Reviewed Results Reviewed: Laboratory Last Values Urine pH (Auto) 5.5 04/08/25 16:23 Specific [place] (Auto) 1.030 04/08/25 16:23 Urine Protein (Auto) 0 mg/dL 04/08/25 16:23 Glucose (UA)(Auto) 0 mg/dL 04/08/25 16:23 Urine Ketones (Auto) Negative 04/08/25 16:23 Urine Blood (Auto) 0 Dallin/uL 04/08/25 16:23 Urine Nitrite (Auto) Negative 04/08/25 16:23 Urine Bilirubin (Auto) 1 mg/dL 04/08/25 16:23 Urine Urobilinogen (Auto) 0.2 mg/dL 04/08/25 16:23 Leukocyte Esterase (Auto) 70 Drew/uL H* 04/08/25 16:23 Assessment & Plan Assessment & Plan (1) Vaginitis and vulvovaginitis: Code(s): N76.0 - Acute vaginitis Plan: Suspected Bacterial Vaginosis (BV) ? foul odor + discharge + no recent sexual activity consistent with BV. Vaginitis panel (BV, Basilia species, Trichomonas). Ordered Metronidazole 500 mg BID for 7 days. Urinalysis with reflex culture ordered. Discussed safe practices with female partners?shared sex toys, digital penetration, etc., can still transmit vaginal carlee imbalances. Orders: Orders AMB Urinalysis Automated Today Z13.9 - Encounter for screening, unspecified Bacterial Vaginosis Panel Today N76.0 - Acute vaginitis UA CC w/rflx Micro + Cult Today N76.0 - Acute vaginitis Medications: New metronidazole 500 mg PO BID 14 tabs 0RF 7 days N76.0 - Acute vaginitis Coding Level of Care Code Est Pt Level 4 (30844) Diagnoses Vaginitis and vulvovaginitis N76.0 Time Spent (min) 20
== END 2025-04-08 16:53 | disposition home or self-care (01) ==
PROVIDERS: PCP Internal Medicine; Visit Provider Nurse Practitioner Family
DX: Z13.9 Encounter for screening, unspecified (principal); N76.0 Acute vaginitis